=== PATIENT | female | born 1955 | race Caucasian/White ===

== ENCOUNTER 2024-10-01 19:58 | Inpatient (IN) | payer MEDICARE, OTHER, SELFPAY ==
[2024-10-01] VITALS (11 sets, daily range): BP systolic 94–191; BP diastolic 49–115; BMI 40.4; BMI 40.6
--- NOTE | 2024-10-01 14:14 | ED.GENMED ---
History of Present Illness
General
Chief Complaint: Chest Pain
Time Seen by Provider: 10/01/24 13:59
History of Present Illness
History of Present Illness:
69 yo female with history of diet-controlled diabetes and hypertension presents to the emergency department for evaluation of generalized upper abdominal pain ongoing for the past 3-4 days. She states symptoms began with intractable nausea and
vomiting however that is since improved. Pain was initially right upper quadrant predominantly left upper quadrant radiating to the left flank. No pelvic pain or lower abdominal discomfort. No fevers but does have night sweats. Prior abdominal
surgery includes subtotal hysterectomy. She reports pleuritic left upper quadrant pain some mild left-sided chest tightness as well
Review of Systems
Review of Systems
Allergies reviewed?: Yes
All Other Systems: ROS reviewed and negative except as documented in HPI and ROS
Phy Exam
Physical Exam
Physical Exam:
GEN: Well appearing, NAD, WDWN
HEENT: Oral mucosa moist, no scleral icterus
Cardiac: Regular rate and rhythm, no murmurs
Lung: No respiratory distress, no tachypnea, lungs clear to auscultation bilaterally
Abdomen: Soft, diffusely tender in the upper abdomen, negative Bland sign, no rigidity
MSK: No gross deformity or injuries
Skin: Good color, no pallor or jaundice, no rashes
Neuro: AO x3, moves all extremities freely
Psych: Calm, cooperative
Scores
Heart Score for Chest Pain Patients
STEMI patient?: Not applicable
Course
Orders/Labs/Results
Orders:
Orders
10/01/24 13:12
EKG [Electrocardiogram (*1)] Urgent
Reason for Study: Chest Pain
EKG- Treatment ONCE
10/01/24 13:27
EKG [Electrocardiogram (*1)] Urgent
Reason for Study: Other
Other Reason for Exam: repeat
EKG- Treatment ONCE
10/01/24 14:13
Ondansetron Injectable [Zofran] 4 mg IV NOW STA
10/01/24 14:49
Complete Blood Count/With Diff Urgent
Comprehensive Metabolic Panel Urgent
LDH Urgent
Comment: ADD ON
Lipase Urgent
Manual Differential Urgent
10/01/24 Dinner
2000 calorie (17 carb) Diabetic
10/01/24 15:38
CT Pe/abd/pel W Urgent
Comment:
Reason For Exam: chest pain, leukocytosis, abd pain
0.9% Sodium Chloride 1000 ml [Nss] 1,000 ml IV BOLUS
10/01/24 15:49
Blood Culture Q30M
KIEL Source: Blood/Venous
Specimen Description:
10/01/24 16:18
Blood Culture Q30M
KIEL Source: Blood/Venous
Specimen Description:
10/01/24 18:21
Heparin 9,400 units IV NOW STA
Nursing to Place Non Medication Order As Directed
Physician Order: PTT 6 hours after initial start of Heparin infusion
Above order entered?: Yes
10/01/24 18:30
Heparin 54115 Units/250 ml 25,000 units in 250 ml IV PER PROTOCOL
Weight to be used for heparin protocol in kilograms (kg):: 117
Protocol:: DVT/PE
PTT Goal Range to be used:: PTT 73 to 111 seconds
Order type:: Initial
INITIAL Infusion Dose (UNITS/KG/hr) & then follow protocol:: 18 units/kg/hr
Infusion Dose in UNITS/hr & then follow protocol (UNITS/hr):: 2,000
INFUSION RATE in mL/hr & then follow protocol (mL/hr):: 20
For DVT/PE algorithm, re-bolus for low PTT?: Yes
PTT less than or equal to 64 seconds:: Re-bolus 80 units/kg (max 10,000units). Increase by 500 units/hr
(+ 5mL/hr)
PTT 64.1 to 72.9 seconds:: Re-bolus 40 units/kg (max 5,000 units). Increase by 200 units/hr
(+ 2mL/hr)
PTT 73 to 111 seconds:: Target Range. No change in rate.
PTT 111.1 to 130.9 seconds:: Decrease rate by 200 units/hr (- 2 mL/hr)
PTT 131 to 199.9 seconds:: HOLD for 1 hr. Then decrease by 400 units/hr (- 4mL/hr)
PTT greater than or equal to 200 seconds:: HOLD for 2 hrs & Notify Provider. Then decrease by 500 units/hr
(- 5mL/hr)
Lab follow-up:: Each change, PTT q6h until 2 consecutive are therapeutic. Then
PTT daily.
10/01/24 18:48
PTT Urgent
Comment: Obtain baseline before beginning heparin infusion if not already collected
10/01/24 19:40
Admit/Transfer Patient As Directed
Co-Sign Provider:
Level of Care: Inpatient admission
Assign to:: Telemetry
Physician / Group: Rudolph Hurt
Diagnosis: Leukocytosis, splenic infarct
Reason for Telemetry: Arrhythmia
Date to Stop Telemetry: 10/04/24
Time to Stop Telemetry: 11:00
Reason for Hospitalization: Leukocytosis, splenic infarct
Expected length of stay greater than two midnights?: Yes
ELOS- Estimated Length of Stay in days: 3
I certify the patient meets the requirements for IP care: Yes
PRN Pain Medication Management As Directed
May give lesser potent ordered pain med per pt: Yes
preference::
Protocol:: Medication orders for pain may be administered in a
manner that supports deferring to patient preference
when the pt is:
- Requesting an ordered lesser potent pain medication.
Least to most potent pain medications are defined
as: acetaminophen < NSAID < tramadol < opioids
(morphine, oxycodone, hydromorphone).
- Requesting a lesser dose of the same medication IF
ORDERED.
- Requesting a less intrusive route of administration
if both routes are prescribed by the provider (PO <
IV).
10/01/24 19:41
Code Status As Directed
Resuscitation Status: Full Code
10/01/24 21:07
0.9% Sodium Chloride 1000 ml [Nss] 1,000 ml IV 80 mls/hr
Acetaminophen [Tylenol] 650 mg PO Q4HPRN PRN
Lisinopril [Zestril] 10 mg PO BID
Ondansetron Injectable [Zofran] 4 mg IV Q6HPRN PRN
bisoprolol-hydrochlorothiazide See Dose Instructions PO BID
10/01/24 21:07
HEMATOLOGY CONSULT Routine
Consulting Provider: Ezra Choi
Was physician already notified: Yes
Activity As Directed
Activity Level: Ambulate
Vital Signs As Directed
Frequency: Per unit guidelines
Weight As Directed
Frequency: Once
Comment: on admission
10/02/24 06:00
BCR-ABL1 Qual Reflex to Quant [S] IN AM
Basic Metabolic Panel IN AM
Complete Blood Count/No Diff IN AM
Leukemia/Lymphoma Phenotyping [S] IN AM
10/02/24 18:00
Multivitamin [Theragran] 1 tablet PO QPM
10/04/24 11:00
DC Protocol for Telemetry ONCE
Abnormal Lab Results
10/01/24
14:49
WBC 97.8 H* 10^3/uL
(4.8-10.8)
MCHC 32.4 L g/dL
(33.0-37.0)
RDW 16.8 H %
(11.5-14.5)
Plt Count 451 H 10^3/uL
(130-400)
MPV 10.5 H fL
(7.4-10.4)
Abs Neuts (Manual) 62.5 H 10^3/uL
(1.4-6.5)
Lymphocytes (Manual) 4 L %
(20-51)
BUN 19 H mg/dl
(7-17)
Glucose 171 H mg/dl
(70-99)
Lactate Dehydrogenase 754 H U/L
(120-246)
10/01/24 14:49
10/01/24 14:49
Vital Signs
Initial and Last Documented VS:
Initial Vital Signs
Temp Pulse Resp BP Pulse Ox
98.4 F 91 20 174/96 95
10/01/24 13:16 10/01/24 13:16 10/01/24 13:16 10/01/24 13:16 10/01/24 13:16
Last Documented Vital Signs
Temp Pulse Resp BP Pulse Ox
99.7 F 103 18 151/79 96
10/01/24 21:46 10/01/24 21:48 10/01/24 20:40 10/01/24 21:48 10/01/24 20:40
MDM/Problems Addressed
MDM/Problems Addressed:
69-year-old female presents with upper abdominal pain and vomiting. She is found to have severe leukocytosis and imaging findings of splenic infarct and splenomegaly, clinical picture is most consistent with acute hematologic malignancy such as
leukemia. Patient was started on heparin and admitted to the hospitalist service for further workup
Comment
Comment:
EKG independently interpreted by me shows normal sinus rhythm at a rate of 87 with frequent PVCs, borderline ST depression in the far lateral leads, otherwise no ischemic change
*Pulse Oximetry
SaO2: 95
Oxygen Mode of Delivery: Room air
Patient hypoxic: no
*Critical Care Note
Total Time (30-74mins, 75-104mins- exclusive of procedures): Not Applicable
ED Attending Note
-
Portions of this chart may have been created with voice recognition software.� Occasional wrong word or��sound alike� substitutions may have occurred due to the inherent limitations of voice recognition software.
Discharge Plan
Departure
Patient Disposition: Admit
Date of Disposition: 10/01/24
Time of Disposition: 18:32
Admit to: Telemetry
Presentation/result/management discussed w/ accepting MD/DO: Hospitalist
Discharge Problem:
Leukocytosis, Splenic infarct
Interventions
Interventions:
*Risk Screen - Suicide Last Done: 10/01/24 13:16
*General Assessment Last Done: 10/01/24 15:01
*Neglect/Abuse Screening Last Done: 10/01/24 13:16
*ED- Fall Risk Assessment Last Done: 10/01/24 15:00
*ED COVID-19 Vaccine History Last Done: 10/01/24 15:00
*Nursing Disposition Last Done: 10/01/24 20:54
ED- Cardiac Assessment Last Done: 10/01/24 15:01
Discharge Date and Time
Discharge Date/Time: 10/01/24 20:54
[2024-10-01] MEDS: ZOFRAN 4 MG IV (14:55)
[2024-10-01 15:13] LABS: ALT (SGPT) 26 U/L (0-35); AST (SGOT) 29 U/L (14-36); Albumin 4.5 g/dl (3.5-5.0); Alkaline Phosphatase 65 U/L (38-126); Blood Urea Nitrogen 19 mg/dl (7-17); Calcium 9.9 mg/dl (8.4-10.2); Carbon Dioxide 26 mmol/L (22-30); Chloride 103 mmol/L (98-107); Estimated Creatinine Clearance 87 ml/min; Glucose 171 mg/dl (70-99); Lipase 71 U/L (23-300); Potassium 4.0 mmol/L (3.5-5.1); Sodium 137 mmol/L (135-145); Total Protein 7.9 g/dl (6.3-8.2); eGFR > 60.00
[2024-10-01 15:20] LABS: Hematocrit 42.3 % (37.0-47.0); Hemoglobin 13.7 g/dL (12.0-16.0); Mean Corp Hgb Conc. 32.4 g/dL (33.0-37.0); Mean Corpuscular Volume 88.1 fL (81.0-99.0); Platelet Count 451 10^3/uL (130-400); Red Cell Dist. Width 16.8 % (11.5-14.5)
[2024-10-01] MEDS: NSS 1000 IV ×2 (15:52→21:49)
[2024-10-01 16:08] LABS: LDH 754 U/L (120-246)
[2024-10-01 16:19] LABS: Absolute Neutrophils -Man Diff 62.5 10^3/uL (1.4-6.5)
[2024-10-01 16:21] LABS: Normal RBC Morphology Yes; Platelets Checked Yes; Total Cells Counted 100
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
[2024-10-01 19:32] LABS: APTT 31.6 Sec (23.4-35.0)
[2024-10-01] MEDS: HEPARIN 25000 UNITS/250 ML IV (20:14)
[2024-10-01] MEDS: HEPARIN 9400 UNITS IV (20:14)
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
[2024-10-01] MEDS: ZESTRIL 10 MG PO (21:48)
--- NOTE | 2024-10-01 22:00 | PTCARENOTE ---
Received patient from ED at approx 2100. Patient ambulated to from stretcher to bed. AAA x 3. Call alford in reach.
[2024-10-02 03:00] VITALS: BP 148/75
[2024-10-02] MEDS: TYLENOL 650 MG PO ×2 (03:00→20:47)
[2024-10-02 03:08] LABS: Glucose - Point of Care 169 mg/dl (70-99)
[2024-10-02 03:09] LABS: APTT 134.7 Sec (23.4-35.0)
[2024-10-02 07:18] LABS: Glucose - Point of Care 141 mg/dl (70-99)
[2024-10-02] MEDS: NOVOLOG FLEXPEN-LOW RESISTANCE SC ×2 (07:28→11:57)
[2024-10-02 07:30] VITALS: BP 175/94
[2024-10-02] MEDS: ZESTRIL 10 MG PO ×2 (07:51→20:48)
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
--- NOTE | 2024-10-02 09:37 | CM ---
Patient seen at bedside with & daughter
IA completed
Dx: leukocytosis, splenic infarct
PMH: hypertension and NIDDM
[place], lives in a 2nd floor apartment with flight of steps to enter, no elevator
PLOF: Independent, drives
Denies DME
Denies VN/Rehab
Denies insecurities
PCP: Has an appt on October 21 with new PCP in [facility] in [place]
Pharmacy: [facility]
PLAN: Home, no needs anticipated, CM to continue to follow
--- NOTE | 2024-10-02 10:00 | W.PN.HOSP.TC ---
Today's Communication/Plan
-
Patient's pain well-controlled
As needed senna, MiraLAX
Echo today for cardiomegaly
Assessment / Plan
Assessment / Plan
Ms Narvaez is a 69-year-old female with past medical history significant for ulcerative colitis, kidney stones, hypertension and NIDDM who presented with generalized upper abdominal pain ongoing for the past 3-4 days. Patient reports symptoms
began with intractable nausea and vomiting on Saturday morning and ended by the afternoon. She then began with abdominal pain that was initially right upper quadrant predominantly then shifting to left upper quadrant. Left upper quadrant significant
pain continues. No pelvic pain or lower abdominal discomfort reported. No fevers but does have episodes of diaphoresis that she compares to the sweats she would get when going through menopause. She reports pleuritic left upper quadrant pain some
mild left-sided chest tightness especially with deep breathing. In the ED EKG was sinus rhythm with PVCs and PACs, CTA showed moderate to severe cardiomegaly, with no PE, CT abdomen pelvis showed 6.5 cm splenic infarct. Blood work showed WBC 97
hemoglobin 13 platelets 451, Na 137 K4 chloride 103 HCO3 26 BUN 19 creatinine 0.8. Patient was started on heparin drip for the splenic infarct and hematology was consulted. Hematology sent out battery of tests including antiphospholipid syndrome
lupus panel BCR abl.
#Leukocytosis
#splenic infarct
Abd/Pel CT:
LARGE 6.5 cm ACUTE SPLENIC INFARCT.
MODERATE SPLENOMEGALY.
- Consult heme/onc
- heparin gtt
- Follow-up blood cultures
- leukemia/lymphoma flow cytometry and BCR-ABL per Heme/Onc recommendation
# Cardiomegaly
CTA with severe to moderate cardiomegaly
EKG nonspecific
Echo ordered
# Essential hypertension
- continue bisoprolol-hydrochlorothiazide
#NIDDM
patient reports diet controlled
- AccuCheck AC & HS
- SSI
- check A1c
DVT prophylaxis
heparin
Code status
full code
Anticipated Discharge: Within 24 hours
Subjective/Interval History
-
Patient was seen at bedside she reports she is doing well with improved abdominal pain. Reports that she has never had this kind of pain before but does report a family history of blood clots in her father. Has had no personal history of blood
clots herself. She is eager to talk with hematology but currently has no complaints. Date of Service: October 02, 2024
Objective Data
-
Labs:
Laboratory Results
10/02/24 10/02/24 10/02/24
02:46 06:00 10:30
WBC Pending
Hgb Pending
Hct Pending
Plt Count Pending
APTT 134.7 H Pending
Sodium Pending
Potassium Pending
Chloride Pending
Carbon Dioxide Pending
BUN Pending
Creatinine Pending
Glucose Pending
Calcium Pending
Vital Signs:
Vital Signs
Temp Pulse Resp BP Pulse Ox
98.5 F 85 18 148/75 94
10/02/24 03:00 10/02/24 03:00 10/02/24 03:00 10/02/24 03:00 10/02/24 03:00
I&O
10/01/24 10/02/24 10/03/24
06:59 06:59 06:59
Intake Total 480 / 480
Balance 480 / 480
Review of Systems
-
History Source: Patient
All other systems: Reviewed and negative
Constitutional: Reports No Symptoms; Denies Fever, Weight Loss or Fatigue
EENT: Reports No Symptoms Reported; Denies Sore Throat or Runny Nose
Respiratory: Reports No Symptoms; Denies Cough or Trouble Breathing
Cardiac: Reports No Symptoms; Denies Chest Pain or Palpitations
Abdomen/GI: Reports No Symptoms; Denies Abdominal Pain, Nausea or Vomiting
Genitourinary: Reports No Symptoms; Denies Dysuria
Musculoskeletal: Reports No Symptoms
Skin: Reports No Symptoms
Neuro: Reports No Symptoms; Denies Headache
Physical Exam
-
General: Well Developed, Well Nourished, No Apparent Distress and Obese
HEENT: Normocephalic and Atraumatic
Respiratory: Clear to Auscultation; Negative Wheezes or Crackles
Cardiac: Regular Rhythm and S1/S2; Negative Murmur or Rub
GI: Soft and Tender (Left upper quadrant tenderness right upper quadrant tenderness, )
Musculoskeletal: No Clubbing, No Cyanosis and No Edema
Skin: Warm and Dry
Neuro: Awake, Alert and Oriented
[2024-10-02] MEDS: NSS IV (10:24)
[2024-10-02] MEDS: HEPARIN 25000 UNITS/250 ML IV (10:45)
[2024-10-02 11:13] LABS: APTT 68.8 Sec (23.4-35.0)
[2024-10-02 11:22] LABS: Hematocrit 41.9 % (37.0-47.0); Hemoglobin 13.4 g/dL (12.0-16.0); Mean Corp Hgb Conc. 32.0 g/dL (33.0-37.0); Mean Corpuscular Volume 89.9 fL (81.0-99.0); Platelet Count 402 10^3/uL (130-400); Red Cell Dist. Width 17.2 % (11.5-14.5)
[2024-10-02 11:23] LABS: Blood Urea Nitrogen 18 mg/dl (7-17); Calcium 9.4 mg/dl (8.4-10.2); Carbon Dioxide 26 mmol/L (22-30); Chloride 105 mmol/L (98-107); Estimated Creatinine Clearance 84 ml/min; Glucose 136 mg/dl (70-99); Potassium 3.6 mmol/L (3.5-5.1); Sodium 140 mmol/L (135-145); Uric Acid 8.7 mg/dl (2.5-6.2); eGFR > 60.00
[2024-10-02] MEDS: HEPARIN 4700 UNITS IV (11:27)
[2024-10-02 11:42] VITALS: BP 146/88
[2024-10-02 11:54] LABS: Glucose - Point of Care 127 mg/dl (70-99)
[2024-10-02] MEDS: NON-FORMULARY ITEM 1 TABLET PO ×2 (11:57→20:48)
[2024-10-02] MEDS: ZYLOPRIM 300 MG PO (12:59)
[2024-10-02 15:09] VITALS: BP 166/83
[2024-10-02 16:57] LABS: Glucose - Point of Care 156 mg/dl (70-99)
[2024-10-02] MEDS: THERAGRAN 1 TABLET PO (17:11)
[2024-10-02] MEDS: NOVOLOG FLEXPEN-LOW RESISTANCE 1 UNITS SC (17:48)
[2024-10-02 18:04] LABS: APTT 89.3 Sec (23.4-35.0)
[2024-10-02 19:30] VITALS: BP 188/88
[2024-10-02 21:21] LABS: Glucose - Point of Care 148 mg/dl (70-99)
[2024-10-02 23:35] VITALS: BP 145/66
[2024-10-03] MEDS: SENOKOT-S 1 TABLET PO (00:24)
[2024-10-03 00:48] LABS: APTT 98.6 Sec (23.4-35.0)
[2024-10-03] MEDS: HEPARIN 25000 UNITS/250 ML IV ×2 (01:02→15:25)
[2024-10-03 03:40] VITALS: BP 155/64
--- NOTE | 2024-10-03 06:53 | W.PN.ONC2 ---
Today's Communication / Plan
-
.
Impression
Impression
leukocytosis w/ predominate myeloid lineage - neutrophils, metamyelocytes, myelocytes - w/ thrombocytosis - along w/ splenomegaly w/ splenic infarct on CT imaging-this constellation of CBC and imaging findings is concerning for possible
myeloproliferative process
-additional myeloproliferative laboratory studies will be ordered accordingly
-bone marrow would also be indicated - potentially as outpt
-heparin gtt for splenic infarct - pt notes improvement in abdominal pain
-cardioembolic w/u in progress - echo pending - along w/ APLS panel
-hyperurcemia/elevated LDH
Plan
Plan
cardioembolic work up underway -echo pending
infectious work up underway -follow cultures
f/u APLS results
follow up peripheral flow and BCR ABL
additional myeloproliferative laboratory studies will be ordered accordingly
bone marrow would also be indicated - potentially as outpt
on heparin gtt -recommend DOAC at discharge
pain management
continue allopurinol, trend urate, LDH, renal function, & electrolytes
Subjective/Objective
Subjective
no new complaints
feeling better
denies any respiratory or neurological symtoms
Vital Signs:
Vital Signs
Temp Pulse Resp BP Pulse Ox
98.5 F 77 20 155/64 94
10/03/24 03:40 10/03/24 03:40 10/03/24 03:40 10/03/24 03:40 10/03/24 03:40
Lab Results:
Laboratory Data
WBC 98.1 10^3/uL (4.8-10.8) H* 10/02/24 10:45
Hgb 13.4 g/dL (12.0-16.0) 10/02/24 10:45
Plt Count 402 10^3/uL (130-400) H 10/02/24 10:45
APTT 98.6 Sec (23.4-35.0) H 10/03/24 00:24
eGFR > 60.00 10/02/24 10:44
Physical Exam
HEENT: Moist Mucous Membranes; No Jaundice
Cardiology: Normal Sinus Rhythm
Pulmonary: Clear
GI: Soft
Extremities: Pulses Present
Neuro: Non Focal
Orders
Orders
Orders From Last 24 Hours
10/02/24 09:12
Add On- LAB Routine
10/02/24 10:45
Bwee-1-Toktexdermcb Panel [S] Routine
Cardiolipin Ab Panel [S] Routine
Lupus Anticoagulant Panel Refl [S] Routine
10/02/24 13:00
Allopurinol [Zyloprim] 300 mg PO DAILY
10/03/24 06:00
LDH IN AM
Uric Acid IN AM
10/04/24 06:00
LDH IN AM
Uric Acid IN AM
10/05/24 06:00
LDH IN AM
Uric Acid IN AM
[2024-10-03 07:14] LABS: Glucose - Point of Care 145 mg/dl (70-99)
[2024-10-03] MEDS: NOVOLOG FLEXPEN-LOW RESISTANCE SC ×3 (07:22→16:32)
[2024-10-03 07:31] VITALS: BP 167/81
[2024-10-03 08:03] LABS: LDH 735 U/L (120-246); Uric Acid 8.0 mg/dl (2.5-6.2)
[2024-10-03 08:04] LABS: APTT 71.4 Sec (23.4-35.0)
[2024-10-03 08:21] LABS: Blood Urea Nitrogen 19 mg/dl (7-17); Calcium 9.5 mg/dl (8.4-10.2); Carbon Dioxide 22 mmol/L (22-30); Chloride 104 mmol/L (98-107); Estimated Creatinine Clearance 84 ml/min; Glucose 121 mg/dl (70-99); Potassium 3.7 mmol/L (3.5-5.1); Sodium 138 mmol/L (135-145); eGFR > 60.00
[2024-10-03] MEDS: HEPARIN 4700 UNITS IV (08:28)
[2024-10-03] MEDS: NON-FORMULARY ITEM 1 TABLET PO ×2 (08:34→20:00)
[2024-10-03] MEDS: ZYLOPRIM 300 MG PO (08:35)
[2024-10-03] MEDS: ZESTRIL 10 MG PO ×2 (08:35→20:01)
[2024-10-03] MEDS: MIRALAX 17 GRAMS PO (08:36)
[2024-10-03 09:15] LABS: Hematocrit 38.9 % (37.0-47.0); Hemoglobin 12.5 g/dL (12.0-16.0); Mean Corp Hgb Conc. 32.1 g/dL (33.0-37.0); Mean Corpuscular Volume 89.4 fL (81.0-99.0); Nucleated Red Blood Cells % 0.6 %; Platelet Count 455 10^3/uL (130-400); Red Cell Dist. Width 17.2 % (11.5-14.5)
--- NOTE | 2024-10-03 10:25 | W.PN.HOSP.TC ---
Today's Communication/Plan
-
Patient reports she is feeling much better than recent days.
Continue anticoagulation treatment for splenic infarct with heparin until this 6 PM this evening. Plan to transition to apixaban oral anticoagulation at 7 PM this evening.
Workup for etiology of splenic infarct underway, including hypercoagulable, cardioembolic, infectious. Continue to monitor clinical status.
Assessment / Plan
Assessment / Plan
#Leukocytosis
#Thrombocytosis
#Splenic infarct
- Hypercoagulable state vs cardioembolic
- CT abdomen/pelvis: LARGE 6.5 cm ACUTE SPLENIC INFARCT. MODERATE SPLENOMEGALY.
- Continue heparin gtt for now, stopping upon transition to OAC
- Plan to transition to apixaban 10 mg p.o. twice daily for 5 more days, followed by apixaban 5 mg p.o. twice daily for 90-day completion course, or until follow-up with heme-onc outpatient
- Blood cultures: NGTD
- Leukemia/lymphoma flow cytometry and BCR-ABL per heme-onc recommendation
- Trend CBC, LDH, uric acid
- WBCs, LDH, uric acid mildly decreased today from prior days
- Plan for outpatient follow-up with heme-onc for further evaluation and bone marrow biopsy
- Heme-onc following
# Cardiomegaly
- Chest CTA: Moderate to severe cardiomegaly
- EKG nonspecific (10/01)
- Echocardiogram ordered, not yet completed
- proBNP pending
# Essential hypertension
- continue bisoprolol-hydrochlorothiazide
#NIDDM
- Patient reports diet controlled
- AccuCheck AC & HS
- SSI
- A1c pending
DVT prophylaxis: Heparin
Code status: Full code
Anticipated Discharge: Within 24 hours
Subjective/Interval History
-
Date of Service: October 03, 2024
Patient seen at bedside on hospital day #3. Nursing reports NAEO. Patient states she currently feels 'best I have felt in a long time.' Patient suggests she would be amenable to discharge to home, with follow-up outpatient with
hematology�oncology and echocardiogram. No current complaints.
Objective Data
-
Labs:
Laboratory Results
10/03/24 10/03/24 10/03/24
00:24 06:31 07:42
WBC 88.2 H*
Hgb 12.5
Hct 38.9
Plt Count 455 H
APTT 98.6 H 71.4 H
Sodium 138 Cancelled
Potassium 3.7 Cancelled
Chloride 104 Cancelled
Carbon Dioxide 22 Cancelled
BUN 19 H Cancelled
Creatinine 0.8 Cancelled
Glucose 121 H Cancelled
Calcium 9.5 Cancelled
10/03/24
14:30
WBC
Hgb
Hct
Plt Count
APTT Pending
Sodium
Potassium
Chloride
Carbon Dioxide
BUN
Creatinine
Glucose
Calcium
Vital Signs:
Vital Signs
Temp Pulse Resp BP Pulse Ox
98.0 F 88 18 167/81 95
10/03/24 07:31 10/03/24 08:35 10/03/24 07:31 10/03/24 08:35 10/03/24 07:31
I&O
10/02/24 10/03/24 10/04/24
06:59 06:59 06:59
Intake Total 480 / 480 1080 / 1080 960 / 960
Balance 480 / 480 1080 / 1080 960 / 960
Review of Systems
-
History Source: Patient
Constitutional: Reports Night Sweats; Denies Fever, Fatigue or Chills
EENT: Reports No Symptoms Reported
Respiratory: Denies Cough, Trouble Breathing or Wheezing
Cardiac: Denies Chest Pain, Palpitations or Syncope
Abdomen/GI: Reports Other (Patient states she is having small bowel movements); Denies Abdominal Pain, Nausea, Vomiting or Diarrhea
Genitourinary: Denies Difficulty Voiding
Musculoskeletal: Denies Edema
Neuro: Denies Headache, Weakness or Numbness
Hematologic / Lymphatic: Denies Bleeding
Physical Exam
-
General: No Apparent Distress and Comfortable
HEENT: Normocephalic and Atraumatic
Respiratory: Clear to Auscultation and Non Labored Respirations; Negative Wheezes or Crackles
Cardiac: Regular Rhythm and S1/S2; Negative Murmur, Rub, Gallop, Tachycardic or Bradycardic
GI: Soft, Nontender (Patient states she was very TTP in recent days, particularly in LUQ and RUQ) and Normal Bowel Sounds
Musculoskeletal: Negative No Cyanosis or No Edema
Skin: Warm and Dry
Neuro: AO x 3, No Motor Deficits and No Sensory Deficits
Psych: Calm
[2024-10-03 11:09] VITALS: BP 168/76
[2024-10-03 11:40] LABS: Glucose - Point of Care 130 mg/dl (70-99)
[2024-10-03 11:48] LABS: Absolute Neutrophils -Man Diff 56.4 10^3/uL (1.4-6.5)
[2024-10-03 11:49] LABS: Anisocytosis 1+; Normal RBC Morphology No; Platelets Checked Yes
[2024-10-03 11:50] LABS: Hypochromasia Slight
[2024-10-03 11:51] LABS: Total Cells Counted 100
[2024-10-03 15:11] LABS: APTT 53.7 Sec (23.4-35.0)
[2024-10-03] MEDS: HEPARIN 9400 UNITS IV (15:26)
[2024-10-03 15:29] VITALS: BP 142/61
[2024-10-03 16:06] LABS: Glucose - Point of Care 141 mg/dl (70-99)
[2024-10-03] MEDS: THERAGRAN 1 TABLET PO (18:00)
[2024-10-03] MEDS: ELIQUIS 10 MG PO (18:52)
[2024-10-03 19:20] VITALS: BP 143/70
[2024-10-03] MEDS: TYLENOL 650 MG PO (20:03)
[2024-10-03 21:10] LABS: Glucose - Point of Care 122 mg/dl (70-99)
[2024-10-03 23:03] VITALS: BP 106/44
[2024-10-04 02:54] VITALS: BP 117/61
[2024-10-04 06:21] LABS: APTT 36.9 Sec (23.4-35.0)
[2024-10-04 06:26] LABS: Hematocrit 36.6 % (37.0-47.0); Hemoglobin 11.9 g/dL (12.0-16.0); Mean Corp Hgb Conc. 32.5 g/dL (33.0-37.0); Mean Corpuscular Volume 88.8 fL (81.0-99.0); Platelet Count 425 10^3/uL (130-400); Red Cell Dist. Width 17.0 % (11.5-14.5)
[2024-10-04 06:36] LABS: Blood Urea Nitrogen 19 mg/dl (7-17); Calcium 9.6 mg/dl (8.4-10.2); Carbon Dioxide 27 mmol/L (22-30); Chloride 107 mmol/L (98-107); Estimated Creatinine Clearance 96 ml/min; Glucose 144 mg/dl (70-99); LDH 594 U/L (120-246); Potassium 3.6 mmol/L (3.5-5.1); Sodium 139 mmol/L (135-145); Uric Acid 8.0 mg/dl (2.5-6.2); eGFR > 60.00
[2024-10-04 07:00] VITALS: BP 141/72
[2024-10-04 07:27] LABS: Glucose - Point of Care 139 mg/dl (70-99)
[2024-10-04] MEDS: NOVOLOG FLEXPEN-LOW RESISTANCE SC ×3 (07:35→17:36)
[2024-10-04] MEDS: NON-FORMULARY ITEM 1 TABLET PO ×2 (07:36→20:12)
[2024-10-04] MEDS: ELIQUIS 10 MG PO ×2 (07:37→20:13)
[2024-10-04] MEDS: ZYLOPRIM 300 MG PO (07:38)
[2024-10-04] MEDS: ZESTRIL 10 MG PO ×2 (07:38→20:13)
[2024-10-04 08:54] LABS: Nucleated Red Blood Cells % 0.6 %
[2024-10-04 08:55] LABS: Absolute Neutrophils -Man Diff 52.3 10^3/uL (1.4-6.5)
[2024-10-04 08:57] LABS: Normal RBC Morphology No; Platelets Checked Yes
[2024-10-04 08:58] LABS: Anisocytosis Slight; Hypochromasia Slight; Total Cells Counted 100
[2024-10-04 11:00] VITALS: BP 142/71
[2024-10-04 11:00] LABS: Glucose - Point of Care 124 mg/dl (70-99)
[2024-10-04 12:00] LABS: Glycohemoglobin (HgbA1c) 7.5 % (4.0-5.6)
--- NOTE | 2024-10-04 12:01 | W.PN.HOSP.TC ---
Today's Communication/Plan
-
Continue apixaban for anticoagulation treatment of splenic infarct.
Workup for etiology of splenic infarct underway, including hypercoagulable, cardioembolic (echo planned for 10/05), infectious.
Continue to monitor clinical status.
Assessment / Plan
Assessment / Plan
#Leukocytosis
#Thrombocytosis
#Splenic infarct
- Hypercoagulable state vs cardioembolic
- CT abdomen/pelvis: LARGE 6.5 cm ACUTE SPLENIC INFARCT. MODERATE SPLENOMEGALY.
- Anticoagulation transitioned from heparin gtt to apixaban yesterday evening, with new regimen as follows:
-Continue apixaban 10 mg p.o. twice daily for 4 more days, followed by apixaban 5 mg p.o. twice daily for 90-day completion course, or until follow-up with heme-onc outpatient
- Blood cultures: NGTD
- Leukemia/lymphoma flow cytometry and BCR-ABL per heme-onc recommendation
- Trend CBC, LDH, uric acid
- Plan for outpatient follow-up with heme-onc for further evaluation and bone marrow biopsy
- Heme-onc following
# Cardiomegaly
- Chest CTA: Moderate to severe cardiomegaly
- EKG nonspecific (10/01)
- Echocardiogram ordered, plan to complete Saturday
- proBNP: 698 (indeterminate)
# Essential hypertension
- continue bisoprolol-hydrochlorothiazide
#NIDDM
- Patient reports diet controlled
- AccuCheck AC & HS
- SSI
- A1c: 7.5 (10/03)
DVT prophylaxis: Apixaban
Code status: Full code
Anticipated Discharge: 24 - 48 hours
Subjective/Interval History
-
Date of Service: October 04, 2024
Patient seen at the bedside on hospital day #4. Nursing reports NAEO. Patient states she is feeling good. Patient says she does not have any upper abdominal pain, rather she is 'just aware of it.' No current complaints.
Objective Data
-
Labs:
Laboratory Results
10/04/24
05:57
WBC 73.8 H*
Hgb 11.9 L
Hct 36.6 L
Plt Count 425 H
APTT 36.9 H
Sodium 139
Potassium 3.6
Chloride 107
Carbon Dioxide 27
BUN 19 H
Creatinine 0.7
Glucose 144 H
Calcium 9.6
Vital Signs:
Vital Signs
Temp Pulse Resp BP Pulse Ox
98.2 F 71 18 142/71 96
10/04/24 11:00 10/04/24 11:00 10/04/24 11:00 10/04/24 11:00 10/04/24 11:00
I&O
10/03/24 10/04/24 10/05/24
06:59 06:59 06:59
Intake Total 1080 / 1080 1560 / 1560
Balance 1080 / 1080 1560 / 1560
Review of Systems
-
History Source: Patient
Constitutional: Reports Night Sweats (Present but improved from recent nights); Denies Fever, Fatigue or Chills
EENT: Reports No Symptoms Reported
Respiratory: Denies Trouble Breathing
Cardiac: Denies Chest Pain, Palpitations or Syncope
Abdomen/GI: Denies Abdominal Pain, Nausea, Vomiting or Diarrhea
Genitourinary: Denies Difficulty Voiding
Musculoskeletal: Reports No Symptoms
Neuro: Denies Headache, Weakness, Numbness or Lightheadedness
Physical Exam
-
General: No Apparent Distress and Comfortable
HEENT: Normocephalic and Atraumatic
Respiratory: Clear to Auscultation and Non Labored Respirations; Negative Wheezes or Crackles
Cardiac: Regular Rhythm and S1/S2; Negative Murmur, Rub, Gallop, Tachycardic or Bradycardic
GI: Soft, Nontender (RUQ and LUQ non-TTP) and Normal Bowel Sounds
Musculoskeletal: No Cyanosis and No Edema
Skin: Warm and Dry
Neuro: AO x 3
Psych: Calm
[2024-10-04 15:01] VITALS: BP 143/64
--- NOTE | 2024-10-04 16:12 | CM ---
CM reviewed chart, plan for Echocardiogram Thursday 10/05. Plan remains home with family. CM will continue to follow for all discharge planning needs.
Plan; home with family when stable
[2024-10-04 16:41] LABS: Glucose - Point of Care 109 mg/dl (70-99)
[2024-10-04] MEDS: THERAGRAN 1 TABLET PO (17:36)
[2024-10-04 19:55] VITALS: BP 152/69
[2024-10-04 21:12] LABS: Glucose - Point of Care 137 mg/dl (70-99)
--- NOTE | 2024-10-04 21:14 | W.PN.ONC2 ---
Today's Communication / Plan
-
Anticipate outpt bone marrow biopsy, although okay to wait for a couple weeks if WBC continues to improve and to await results from BCR/ABL PCR testing.
Would have pt undergo CBC c diff weekly until follow up visit.
We will arrange outpt follow up with me in about 3 weeks.
Impression
Impression
leukocytosis w/ predominate myeloid lineage - neutrophils, metamyelocytes, myelocytes - w/ thrombocytosis - along w/ splenomegaly w/ splenic infarct on CT imaging-this constellation of CBC and imaging findings is concerning for possible
myeloproliferative process
-additional myeloproliferative laboratory studies will be ordered accordingly
-bone marrow would also be indicated - potentially as outpt
-heparin gtt for splenic infarct - pt notes improvement in abdominal pain
-cardioembolic w/u in progress - echo pending - along w/ APLS panel
-hyperurcemia/elevated LDH
Plan
Plan
cardioembolic work up underway
infectious work up underway -follow cultures
f/u APLS results
follow up peripheral flow and BCR ABL
additional myeloproliferative laboratory studies will be ordered accordingly
bone marrow would also be indicated - potentially as outpt
on heparin gtt -recommend DOAC at discharge
pain management
continue allopurinol, trend urate, LDH, renal function, & electrolytes
Subjective/Objective
Chief Complaint
Heme/Onc follow up of leukocytosis
Subjective
Feels well, denies complaint.
Vital Signs:
Vital Signs
Temp Pulse Resp BP Pulse Ox
99.2 F 80 16 152/69 95
10/04/24 19:55 10/04/24 20:13 10/04/24 19:55 10/04/24 20:13 10/04/24 19:55
Lab Results:
Laboratory Data
WBC 73.8 10^3/uL (4.8-10.8) H* 10/04/24 05:57
Hgb 11.9 g/dL (12.0-16.0) L 10/04/24 05:57
Plt Count 425 10^3/uL (130-400) H 10/04/24 05:57
APTT 36.9 Sec (23.4-35.0) H 10/04/24 05:57
eGFR > 60.00 10/04/24 05:57
Physical Exam
Patient appears comfortable, in no acute distress. Appears stated age. Head atraumatic, normocephalic. Sclera anicteric, conjunctiva pink, oropharynx clear. No cervical, supraclavicular or axillary adenopathy. Heart rate and rhythm regular, no
murmurs, rubs or gallops. Lungs clear without rales or rhonchi. No kyphosis. Abdomen distended, firm, non-tender, no hepatosplenomegaly. No inguinal adenopathy. Extremities without clubbing, cyanosis or edema. Gait and stature normal. Neurologic
exam grossly non-focal, no hemiplegia.
Review of Systems
Review of Systems
A ten point interval review of systems was performed and is negative in detail except as per the HPI.
[2024-10-04 21:35] LABS: Source Blood
[2024-10-04 23:11] VITALS: BP 150/67
[2024-10-05] VITALS (7 sets, daily range): BP systolic 146–184; BP diastolic 65–90; BMI 40.7
[2024-10-05 06:48] LABS: APTT 40.2 Sec (23.4-35.0)
[2024-10-05 06:51] LABS: Hematocrit 36.5 % (37.0-47.0); Hemoglobin 11.7 g/dL (12.0-16.0); Mean Corp Hgb Conc. 32.1 g/dL (33.0-37.0); Mean Corpuscular Volume 88.0 fL (81.0-99.0); Platelet Count 447 10^3/uL (130-400); Red Cell Dist. Width 16.8 % (11.5-14.5)
[2024-10-05 06:59] LABS: Blood Urea Nitrogen 18 mg/dl (7-17); Calcium 9.6 mg/dl (8.4-10.2); Carbon Dioxide 25 mmol/L (22-30); Chloride 106 mmol/L (98-107); Estimated Creatinine Clearance 96 ml/min; Glucose 129 mg/dl (70-99); LDH 649 U/L (120-246); Potassium 3.6 mmol/L (3.5-5.1); Sodium 138 mmol/L (135-145); Uric Acid 7.6 mg/dl (2.5-6.2); eGFR > 60.00
[2024-10-05 07:33] LABS: Glucose - Point of Care 150 mg/dl (70-99)
[2024-10-05 07:43] LABS: Absolute Neutrophils -Man Diff 55.0 10^3/uL (1.4-6.5); Anisocytosis Slight; Normal RBC Morphology No; Platelets Checked Yes; Polychromasia Slight; Total Cells Counted 100
[2024-10-05] MEDS: NOVOLOG FLEXPEN-LOW RESISTANCE 1 UNITS SC (08:15)
[2024-10-05] MEDS: NON-FORMULARY ITEM 1 TABLET PO ×2 (08:17→20:57)
[2024-10-05] MEDS: ZYLOPRIM 300 MG PO (08:17)
[2024-10-05] MEDS: ZESTRIL 10 MG PO ×2 (08:17→20:58)
[2024-10-05] MEDS: ELIQUIS 10 MG PO ×2 (08:17→20:58)
--- NOTE | 2024-10-05 08:42 | W.PN.ONC2 ---
Today's Communication / Plan
-
weekly CBC, CMP, LDH, urate and outpatient bone marrow biopsy
Discharge planning
Pt at bedside provided updates and questions answered
Impression
Impression
leukocytosis w/ predominate myeloid lineage - neutrophils, metamyelocytes, myelocytes - w/ thrombocytosis - along w/ splenomegaly w/ splenic infarct on CT imaging-this constellation of CBC and imaging findings is concerning for possible
myeloproliferative process -peripheral flow with CD34+ blasts
-splenic infarct -heparin gtt transitioned to DOAC
-hyperuremia improved on allopurinol
Plan
Plan
f/u APLS results
bone marrow biopsy as outpt
on DOAC
pain management
continue allopurinol, trend urate, LDH, renal function, & electrolytes
Subjective/Objective
Subjective
no new complaints
Vital Signs:
Vital Signs
Temp Pulse Resp BP Pulse Ox
98.2 F 76 18 154/74 94
10/05/24 07:46 10/05/24 07:46 10/05/24 07:46 10/05/24 07:46 10/05/24 07:46
Lab Results:
Laboratory Data
WBC 73.4 10^3/uL (4.8-10.8) H* 10/05/24 06:16
Hgb 11.7 g/dL (12.0-16.0) L 10/05/24 06:16
Plt Count 447 10^3/uL (130-400) H 10/05/24 06:16
APTT 40.2 Sec (23.4-35.0) H 10/05/24 06:15
eGFR > 60.00 10/05/24 06:15
Physical Exam
HEENT: Moist Mucous Membranes; No Jaundice
Cardiology: Normal Sinus Rhythm
Pulmonary: Clear
GI: Soft
Extremities: Pulses Present
Neuro: Non Focal
Orders
Orders
Orders From Last 24 Hours
10/05/24 06:15
LDH IN AM
Uric Acid IN AM
[2024-10-05 11:27] LABS: Glucose - Point of Care 116 mg/dl (70-99)
[2024-10-05] MEDS: NOVOLOG FLEXPEN-LOW RESISTANCE SC ×2 (11:43→17:14)
--- NOTE | 2024-10-05 15:15 | W.PN.HOSP.TC ---
Addendum entered and electronically signed by Sonya Regalado MD 10/05/24 17:22:
I saw and evaluated the patient independently. I reviewed the resident�s note and agree with findings and plan as documented by Dr. Barlow.
GENERAL: well developed, well nourished, obese female in no apparent distress
HEENT: NC/AT
HEART: regular rate and rhythm, +S1, +S2, RITESH
LUNGS : clear to auscultation bilaterally
ABDOM: soft, nontender, nondistended, + bowel sounds
EXT: no cyanosis, clubbing, or edema
NEUROLOGIC: grossly intact
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
BCR/ABL gene pending- CT abdomen/pelvis: LARGE 6.5 cm ACUTE SPLENIC INFARCT. MODERATE SPLENOMEGALY--off heparin drip and now on Eliquis--will need follow up as outpt with heme and IR for bone marrow biopsy--cont allopurinol for tumor lysis
Cardiomegaly--found on CT scan--ECHO with mildly reduced EF--45-50% but with global hypokinesis--apprec cards--for treadmill nuclear stress test in AM--NPO post MN
Essential hypertension--continue bisoprolol-hydrochlorothiazide
NIDDM--diet controlled- AccuCheck AC & HS- SSI- A1c: 7.5 (10/03)
DVT proph- Apixaban
Code status-- Full code
Original Note:
Today's Communication/Plan
-
Patient had echo today
Cardiology consult
Doing well on apixaban
Assessment / Plan
Assessment / Plan
Ms Narvaez is a 69-year-old female with past medical history significant for ulcerative colitis, kidney stones, hypertension and NIDDM who presented with generalized upper abdominal pain ongoing for the past 3-4 days. Patient reports symptoms
began with intractable nausea and vomiting on Saturday morning and ended by the afternoon. She then began with abdominal pain that was initially right upper quadrant predominantly then shifting to left upper quadrant. Left upper quadrant significant
pain continues. No pelvic pain or lower abdominal discomfort reported. No fevers but does have episodes of diaphoresis that she compares to the sweats she would get when going through menopause. She reports pleuritic left upper quadrant pain some
mild left-sided chest tightness especially with deep breathing. In the ED EKG was sinus rhythm with PVCs and PACs, CTA showed moderate to severe cardiomegaly, with no PE, CT abdomen pelvis showed 6.5 cm splenic infarct. Blood work showed WBC 97
hemoglobin 13 platelets 451, Na 137 K4 chloride 103 HCO3 26 BUN 19 creatinine 0.8. Patient was started on heparin drip for the splenic infarct and hematology was consulted. Hematology sent out battery of tests including antiphospholipid syndrome
lupus panel BCR abl. Heme-onc thinks this could possibly be a myeloid disorder, requiring bone marrow biopsy outpatient. Patient was transition from heparin drip to Eliquis. Echo performed showed 45 to 50% ejection fraction, with global
hypokinesis. Cardiology consulted.
#Leukocytosis
#Thrombocytosis
#Splenic infarct
- Hypercoagulable state vs cardioembolic
- CT abdomen/pelvis: LARGE 6.5 cm ACUTE SPLENIC INFARCT. MODERATE SPLENOMEGALY.
- Anticoagulation transitioned from heparin gtt to apixaban
-Continue apixaban 10 mg p.o. twice daily for 4 more days, followed by apixaban 5 mg p.o. twice daily for 90-day completion course, or until follow-up with heme-onc outpatient
- Leukemia/lymphoma flow cytometry and BCR-ABL per heme-onc recommendation
- Trend CBC, LDH, uric acid
- Plan for outpatient follow-up with heme-onc for further evaluation and bone marrow biopsy
- Heme-onc following
# Cardiomegaly
- Chest CTA: Moderate to severe cardiomegaly
- EKG nonspecific (10/01)
- Echocardiogram EF 45 to 50%, global hypokinesis
- proBNP: 698 (indeterminate)
Cardiology consulted
# Essential hypertension
- continue bisoprolol-hydrochlorothiazide
#NIDDM
- Patient reports diet controlled
- AccuCheck AC & HS
- SSI
- A1c: 7.5 (10/03)
DVT prophylaxis: Apixaban
Code status: Full code
Anticipated Discharge: Within 24 hours
Subjective/Interval History
-
Patient was seen at bedside, she reports doing well without any abdominal pain. She has no other complaints. Date of Service: October 05, 2024
Objective Data
-
Labs:
Laboratory Results
10/05/24 10/05/24
06:15 06:16
WBC 73.4 H*
Hgb 11.7 L
Hct 36.5 L
Plt Count 447 H
APTT 40.2 H
Sodium 138
Potassium 3.6
Chloride 106
Carbon Dioxide 25
BUN 18 H
Creatinine 0.7
Glucose 129 H
Calcium 9.6
Vital Signs:
Vital Signs
Temp Pulse Resp BP Pulse Ox
98.2 F 90 18 184/90 98
10/05/24 14:58 10/05/24 14:58 10/05/24 14:58 10/05/24 14:58 10/05/24 14:58
I&O
10/04/24 10/05/24 10/06/24
06:59 06:59 06:59
Intake Total 1560 / 1560 1380 / 1380
Balance 1560 / 1560 1380 / 1380
Review of Systems
-
History Source: Patient
All other systems: Reviewed and negative
Constitutional: Reports No Symptoms; Denies Fever or Fatigue
EENT: Reports No Symptoms Reported; Denies Sore Throat or Runny Nose
Respiratory: Reports No Symptoms; Denies Cough or Trouble Breathing
Cardiac: Reports No Symptoms; Denies Chest Pain or Palpitations
Abdomen/GI: Reports No Symptoms; Denies Abdominal Pain, Nausea or Vomiting
Musculoskeletal: Reports No Symptoms
Skin: Reports No Symptoms; Denies Itching or Rash
Neuro: Reports No Symptoms; Denies Dizzy or Headache
Physical Exam
-
General: Well Developed, Well Nourished, No Apparent Distress and Obese
HEENT: Negative Normocephalic or Atraumatic
Respiratory: Clear to Auscultation; Negative Wheezes or Crackles
Cardiac: Regular Rhythm and S1/S2; Negative Murmur or Rub
GI: Soft, Nontender, Nondistended and Normal Bowel Sounds
Musculoskeletal: No Clubbing, No Cyanosis and No Edema
Skin: Warm and Dry
Neuro: Awake, Alert and Oriented
[2024-10-05 15:44] LABS: Glucose - Point of Care 131 mg/dl (70-99)
--- NOTE | 2024-10-05 16:20 | CON.CAR ---
Addendum entered and electronically signed by Long Sullivan MD 10/05/24 17:58:
I saw and examined the patient.
The EBAY RESELLER's note was reviewed and I agree with the note.
Consult requested by Dr. Regalado for EF 45 to 50% on echocardiogram
69-year-old woman with a history of hypertension, diabetes, obesity, and ulcerative colitis who presented with abdominal pain and was noted to have a splenic infarct. Patient also noted to have leukocytosis with WBC 97 on admission. Patient seen
by hematology. There is concern for myeloproliferative process. Eventual plans for bone marrow biopsy. Timing being directed by hematology. Patient currently on Eliquis.
CT is great and raise question for cardiomegaly so echocardiogram was ordered. Borderline dilated left ventricle with estimated ejection fraction 45 to 50%. Patient with no complaints of shortness of breath or chest pain no orthopnea lower
extremity edema no history of cardiac disease. Patient does have a history of hypertension and is currently on medical therapy. No history of 'coronary artery disease. Rare alcohol use. No recent viral illness.
.
Cardiomyopathy
- Mild cardiomyopathy with estimated ejection fraction 45 to 50%
- Asymptomatic
- Euvolemic
- Etiology unclear.
- Check TSH
- Would recommend noninvasive evaluation for coronary artery disease. Plan for ETT MIBI. Will start with modified protocol. If unable to adequately walk on the treadmill we will transition to Lexiscan.
- Consider addition of SGLT2 inhibitor if okay with primary team
- Continue lisinopril
- Would consider transition Bystolic to metoprolol succinate
- Continue treatment of hypertension
.
Leukocytosis with concern for myeloproliferative process
- Evaluation as directed by hematology
.
Splenic infarct.
-Pain improved. No longer with complaints of abdominal pain
- Hematology evaluation in progress
- Patient currently maintained on anticoagulation
Original Note:
Consultation
Consultation Request
Date/Time Consultation Requested: 10/05/2024 13:00
Date/Time Consultation Performed: 10/05/2024 16:20
Requesting Provider: Dr. Barlow [MD resident]
Performing Provider: GRANT Carpenter for Dr. Sullivan
Reason for Consultation: Abnormal Echocardiogram
Medical History
-
Chief Complaint: Abdominal pain
History of Present Illness:
Isabelle Narvaez is a 69 year old female with hypertension, type 2 diabetes mellitus, ulcerative colitis, and former smoker who presented to the emergency department with a chief complaint of abdominal pain. This was ongoing for 3 to 4 days prior to
arrival. She had associated vomiting. She endorsed episodes of diaphoresis similar to hot flashes during menopause. CT showed splenic infarct. An echocardiogram was ordered for significant cardiomegaly. Cardiology was consulted for abnormal
echocardiogram. She has global hypokinesis with an LVEF of 45 to 50%. She was evaluated by hematology/oncology for her leukocytosis. The plan is for outpatient bone marrow biopsy. She denies chest pain, shortness of breath, and dizziness.
Past Medical History
Past Medical History: HTN, NIDDM and Other (Ulcerative colitis)
Past Surgical History: Gynecological, Orthopedic and Tonsilectomy
Social History
Tobacco: Former Smoker
Personal:
Living: With Family
Family History
Family History: Reviewed & Not Pertinent
Allergies / Home Medications
Allergy/AdvReac Type Severity Reaction Status Date / Time
No Known Allergies Allergy Unverified 10/01/24 13:16
�Medication �Instructions �Recorded �Confirmed �Type
acetaminophen 500 mg tablet 1,000 mg PO Q6HPRN PRN mild pain 10/01/24 10/01/24 History
(Tylenol Extra Strength)
bisoprolol 10 1 tab PO BID 10/01/24 10/01/24 History
mg-hydrochlorothiazide 6.25 mg
tablet
lisinopril 10 mg tablet 10 mg PO BID 10/01/24 10/01/24 History
therapeutic multivitamin 1 tab PO QPM 10/01/24 10/01/24 History
Review of Systems
-
History Source: Patient
All other systems: Negative unless noted
Constitutional: Fatigue and Night Sweats
EENT: No Symptoms
Respiratory: No Symptoms
Cardiac: No Symptoms
Abdomen/GI: No Symptoms
: No Symptoms
Musculoskeletal: No Symptoms
Skin: No Symptoms
Neurological: No Symptoms
Endocrine: No Symptoms
Hematologic/Lymphatic: No Symptoms
Physical Exam
Vital Signs
Temp Pulse Resp BP Pulse Ox
98.2 F 90 18 184/90 98
10/05/24 14:58 10/05/24 14:58 10/05/24 14:58 10/05/24 14:58 10/05/24 14:58
Lab Results
10/05/24 06:16
10/05/24 06:15
Wpo-X-Qfrlwjsqcog Pept 698 pg/ml 10/03/24 06:31
Physical Exam
General: Well Developed, Well Nourished, No Apparent Distress and Comfortable
HEENT: Normocephalic, Anicteric and Moist Mucous Membranes
Respiratory: Clear and Non Labored Respirations
Cardiac: S1/S2, Regular Rhythm and Murmur
Breast: Deferred by me
GI: Soft, Non Tender, Non Distended and Normal Bowel Sounds
Rectal: Deferred by Provider
Genito-urinary: No Costovertebral Tender
Musculoskeletal: No Clubbing, No Cyanosis and No Edema
Skin: Warm and Dry
Neuro: AO x 3
Hematologic/Lymphatic: No Lymphadenopathy
Psych: Calm
Impression / Plan
-
I/P: 69F with with hypertension, type 2 diabetes mellitus, ulcerative colitis, and former smoker who presented to the emergency department with a chief complaint of abdominal pain.
Outpatient jar capper: will be Dr. Sullivan
Cardiomyopathy (EF 40-45%), type unknown
- She does not appear to be in acute/decompensated heart failure
- GDMT as tolerated:
-NADIRA/ARB/ARNI: Lisinopril 10 mg twice daily
-SGLT2 inhibitor: Case management to simmons
-Aldosterone agonist: Can consider, no documented hyperkalemia
-Beta rachid: Bisoprolol 10 mg twice daily
-Isosorbide/Hydralazine:�Not indicated
-ICD: Not indicated
- Trend daily weight, I/O
- Consider outpatient cardio oncology consultation
- Nuclear stress test in a.m., no caffeine (she may need Lexiscan), n.p.o. after midnight, hold beta rachid
Leukocytosis with thrombocytosis and splenic infarct
- Plan is for outpatient bone marrow biopsy per Heme-Onc
Splenic infarct
- Large 6.5 cm acute splenic infarct on CT
- Now on apixaban, 10 mg twice daily for 4 more days then will transition to 5 mg twice daily for total of 90 days or until stopped by Heme-Onc
Mitral regurgitation, moderate
PVC, continue beta rachid
Atherosclerosis in thoracic aorta, statin recommended
NIDDM, with hyperglycemia, HbA1c 7.5%, per primary
Obesity, BMI 40, she would benefit from weight loss
Data Reviewed
-
EKG: Report Reviewed by me
CT Scan: Report Reviewed by me
Medical Tests (Nuc Med, Echo etc): Report Reviewed by me
[2024-10-05] MEDS: THERAGRAN 1 TABLET PO (17:14)
[2024-10-05 19:57] LABS: Beta-2-Glycoprotein I Ab. IgG <10 SGU (<=20); Beta-2-Glycoprotein I Ab. IgM <10 SMU (<=20)
[2024-10-05 21:28] LABS: Glucose - Point of Care 127 mg/dl (70-99)
[2024-10-06 03:00] VITALS: BP 151/77
[2024-10-06 05:52] LABS: Glucose - Point of Care 130 mg/dl (70-99)
[2024-10-06 07:13] VITALS: BP 187/92
[2024-10-06 08:01] LABS: Hematocrit 37.8 % (37.0-47.0); Hemoglobin 12.3 g/dL (12.0-16.0); Mean Corp Hgb Conc. 32.5 g/dL (33.0-37.0); Mean Corpuscular Volume 89.2 fL (81.0-99.0); Platelet Count 520 10^3/uL (130-400); Red Cell Dist. Width 17.2 % (11.5-14.5)
[2024-10-06 08:08] LABS: Glucose - Point of Care 145 mg/dl (70-99)
[2024-10-06 08:35] LABS: Blood Urea Nitrogen 17 mg/dl (7-17); Calcium 9.4 mg/dl (8.4-10.2); Carbon Dioxide 24 mmol/L (22-30); Chloride 105 mmol/L (98-107); Estimated Creatinine Clearance 112 ml/min; Glucose 118 mg/dl (70-99); HDL Cholesterol 31 mg/dl; LDL Cholesterol, Calculated 82 mg/dl; Potassium 3.9 mmol/L (3.5-5.1); Sodium 140 mmol/L (135-145); Very Low Density Lipoprotein 26 mg/dl (0-30); eGFR > 60.00
--- NOTE | 2024-10-06 08:47 | W.PN.CD ---
Addendum entered and electronically signed by Long Sullivan MD 10/06/24 11:19:
I saw and examined the patient.
The WATER HAULER's note was reviewed and I agree with the note.
No new symptoms. Patient comfortable. No complaints of abdominal pain, chest pain or shortness of breath. Plan for nuclear stress as recommended. Will then try to optimize GDMT which would initially include transition of lisinopril to Entresto,
addition of SGLT2 and transition of bisoprolol to Toprol-XL
Original Note:
Today's Communication / Plan
-
Nuclear stress this morning
TSH pending
Impression / Plan
-
I/P: 69F with with hypertension, type 2 diabetes mellitus, ulcerative colitis, and former smoker who presented to the emergency department with a chief complaint of abdominal pain.
Outpatient casting room helper: will be Dr. Sullivan
Cardiomyopathy (EF 40-45%), type unknown
- She does not appear to be in acute/decompensated heart failure
- GDMT as tolerated:
-NADIRA/ARB/ARNI: Lisinopril 10 mg twice daily
-SGLT2 inhibitor: Case management to simmons
-Aldosterone agonist: Can consider, no documented hyperkalemia
-Beta rachid: Bisoprolol 10 mg twice daily
-Isosorbide/Hydralazine:�Not indicated
-ICD: Not indicated
- Trend daily weight, I/O
- Consider outpatient cardio oncology consultation
- Stress test this morning
- TSH pending
Leukocytosis with thrombocytosis and splenic infarct
- Plan is for outpatient bone marrow biopsy per Heme-Onc
Splenic infarct
- Large 6.5 cm acute splenic infarct on CT
- Now on apixaban, 10 mg twice daily for 4 more days then will transition to 5 mg twice daily for total of 90 days or until stopped by Heme-Onc
Mitral regurgitation, moderate
PVC, continue beta rachid
Atherosclerosis in thoracic aorta, statin recommended
NIDDM, with hyperglycemia, HgbA1c 7.5%, per primary
Obesity, BMI 40, she would benefit from weight loss
SUBJECTIVE:
Denies CP, SOB, and dizziness
Physical Exam
Vital Signs/Labs
Vital Signs
Temp Pulse Resp BP Pulse Ox
98.2 F 83 20 187/92 95
10/06/24 07:13 10/06/24 07:13 10/06/24 07:13 10/06/24 07:13 10/06/24 07:13
10/05/24 10/06/24 10/07/24
06:59 06:59 06:59
Actual Weight 114.334 kg
10/06/24 06:42
10/06/24 06:42
APTT 40.2 Sec (23.4-35.0) H 10/05/24 06:15
Triglycerides 132 mg/dl (10-149) 10/06/24 06:42
LDL Cholesterol, Calc 82 mg/dl 10/06/24 06:42
VLDL Cholesterol, Calc 26 mg/dl (0-30) 10/06/24 06:42
HDL Cholesterol 31 mg/dl 10/06/24 06:42
10/03/24
06:31
Rlk-Y-Lagtrnifrrw Pept 698
Physical Exam
Constitutional: No acute distress and Comfortable
EENT: Anicteric and Moist mucous membranes
Cardiovascular: Rhythm & rate is regular and S1S2 is normal
Respiratory: Respiratory effort normal and Lungs clear to auscul.
GI: Soft, Distention absent, Flat, Non tender and Normal bowel sounds
Neuro/Psych: AO x 3
Other: Skin (warm and dry)
Data Reviewed
-
Date of Service: October 06, 2024
Labs: Labs Reviewed by me
Old Records: Reviewed
--- NOTE | 2024-10-06 08:51 | W.PN.ONC2 ---
Today's Communication / Plan
-
discharge planning
Impression
Impression
leukocytosis w/ predominate myeloid lineage - neutrophils, metamyelocytes, myelocytes - w/ thrombocytosis - along w/ splenomegaly w/ splenic infarct on CT imaging-2% blasts noted on flow, not specific but suggestive of primary bone marrow dyscrasia.
-splenic infarct -cardiolipin and beta2 glycoprotein negative -heparin gtt transitioned to DOAC
-hyperuremia improved on allopurinol
-cardiomyopathy LVEF 45-50%
Plan
Plan
f/u lupus anticoagulant
bone marrow biopsy as outpt 10/09
on DOAC
pain management
continue allopurinol, trend urate, LDH, renal function, & electrolytes
Cardiology evaluation underway
Subjective/Objective
Subjective
no new complaints
Vital Signs:
Vital Signs
Temp Pulse Resp BP Pulse Ox
98.2 F 83 20 187/92 95
10/06/24 07:13 10/06/24 07:13 10/06/24 07:13 10/06/24 07:13 10/06/24 07:13
Lab Results:
Laboratory Data
WBC 81.6 10^3/uL (4.8-10.8) H* 10/06/24 06:42
Hgb 12.3 g/dL (12.0-16.0) 10/06/24 06:42
Plt Count 520 10^3/uL (130-400) H 10/06/24 06:42
APTT 40.2 Sec (23.4-35.0) H 10/05/24 06:15
eGFR > 60.00 10/06/24 06:42
Physical Exam
HEENT: Moist Mucous Membranes; No Jaundice
Cardiology: Normal Sinus Rhythm
Pulmonary: Clear
GI: Soft
Extremities: Pulses Present
Neuro: Non Focal
[2024-10-06] MEDS: NOVOLOG FLEXPEN-LOW RESISTANCE SC ×3 (09:04→16:43)
[2024-10-06] MEDS: ZYLOPRIM 300 MG PO (09:05)
[2024-10-06] MEDS: ELIQUIS 10 MG PO ×2 (09:05→19:49)
[2024-10-06] MEDS: ZESTRIL 10 MG PO (09:05)
[2024-10-06 09:49] LABS: LDH 631 U/L (120-246); Uric Acid 6.9 mg/dl (2.5-6.2)
--- NOTE | 2024-10-06 11:45 | CM ---
Addendum entered by Tri Swann 10/06/24 14:02:
30 day free coupon provided to patient.
Original Note:
Chart reviewed and patient is for possible discharge to home today with family. Cost of medications are as follows, Jardiance 10mg $119.29 per month, Farxiga 10mg $119, and Entresto 24/26 $133.66 per month.
Plan; Home at discharge.
[2024-10-06 13:43] LABS: Ferritin 605.0 ng/ml (11.1-264.0)
--- NOTE | 2024-10-06 13:51 | W.PN.HOSP.TC ---
Addendum entered and electronically signed by Sonya Regalado MD 10/06/24 14:13:
I saw and evaluated the patient independently. I reviewed the resident�s note and agree with findings and plan as documented by Dr. Barlow.
GENERAL: well developed, well nourished, obese female in no apparent distress
HEENT: NC/AT
HEART: regular rate and rhythm, +S1, +S2, RITESH
LUNGS : clear to auscultation bilaterally
ABDOM: soft, nontender, nondistended, + bowel sounds
EXT: no cyanosis, clubbing, or edema
NEUROLOGIC: grossly intact
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
line, BCR/ABL gene pending- CT abdomen/pelvis: LARGE 6.5 cm ACUTE SPLENIC INFARCT. MODERATE SPLENOMEGALY--off heparin drip and now on Eliquis--will need follow up as outpt with heme and IR for bone marrow biopsy--cont allopurinol for tumor lysis
Cardiomegaly--found on CT scan--ECHO with mildly reduced EF--45-50% but with global hypokinesis--apprec cards--for treadmill nuclear stress test today--further treatment decisions based on stress test result
Essential hypertension-- bisoprolol-hydrochlorothiazide to change to GDMT per cards
NIDDM--diet controlled- AccuCheck AC & HS- SSI- A1c: 7.5 (10/03)
DVT proph- Apixaban
Code status-- Full code
Original Note:
Today's Communication/Plan
-
Nuclear stress test
Appreciate cards with GDMT optimization
Outpatient bone marrow biopsy 10/09
Assessment / Plan
Assessment / Plan
Ms Narvaez is a 69-year-old female with past medical history significant for ulcerative colitis, kidney stones, hypertension and NIDDM who presented with generalized upper abdominal pain ongoing for the past 3-4 days. Patient reports symptoms
began with intractable nausea and vomiting on Saturday morning and ended by the afternoon. She then began with abdominal pain that was initially right upper quadrant predominantly then shifting to left upper quadrant. Left upper quadrant significant
pain continues. No pelvic pain or lower abdominal discomfort reported. No fevers but does have episodes of diaphoresis that she compares to the sweats she would get when going through menopause. She reports pleuritic left upper quadrant pain some
mild left-sided chest tightness especially with deep breathing. In the ED EKG was sinus rhythm with PVCs and PACs, CTA showed moderate to severe cardiomegaly, with no PE, CT abdomen pelvis showed 6.5 cm splenic infarct. Blood work showed WBC 97
hemoglobin 13 platelets 451, Na 137 K4 chloride 103 HCO3 26 BUN 19 creatinine 0.8. Patient was started on heparin drip for the splenic infarct and hematology was consulted. Hematology sent out battery of tests including antiphospholipid syndrome
lupus panel BCR abl. Heme-onc thinks this could possibly be a myeloid disorder, requiring bone marrow biopsy outpatient. Outpatient biopsy scheduled with IR for Monday 10/09. patient was transition from heparin drip to Eliquis. Echo performed
showed 45 to 50% ejection fraction, with global hypokinesis. Cardiology consulted, who ordered a nuclear stress test.
#Leukocytosis
#Thrombocytosis
#Splenic infarct
- Hypercoagulable state vs cardioembolic
- CT abdomen/pelvis: LARGE 6.5 cm ACUTE SPLENIC INFARCT. MODERATE SPLENOMEGALY.
- Anticoagulation transitioned from heparin gtt to apixaban
-Continue apixaban 10 mg p.o. twice daily for 4 more days, followed by apixaban 5 mg p.o. twice daily for 90-day completion course, or until
- Trend CBC, LDH, uric acid
- Plan for outpatient follow-up with heme-onc for further evaluation and bone marrow biopsy
Biopsy 10/09, stop apixaban 10/07, resume on 10/09 evening
- Heme-onc following
Negative cardiolipin, negative beta-2 glycoprotein
Continue allopurinol
# Cardiomegaly
- Chest CTA: Moderate to severe cardiomegaly
- Echocardiogram EF 45 to 50%, global hypokinesis
Cardiology consulted
Nuclear stress test ordered
Optimizing GDMT for patient
transition of lisinopril to Entresto, addition of SGLT2 and transition of bisoprolol to Toprol-XL
# Essential hypertension
Appreciate cards recs
transition of lisinopril to Entresto, addition of SGLT2 and transition of bisoprolol to Toprol-XL
#NIDDM
- Patient reports diet controlled
- AccuCheck AC & HS
- SSI
- A1c: 7.5 (10/03)
DVT prophylaxis: Apixaban
Code status: Full code
Anticipated Discharge: Within 24 hours
Subjective/Interval History
-
Patient is doing well. She reports no complaints and is doing a lot better. She is ready for her stress test today. Answered her questions and informed her of changes to hypertension medications. Date of Service: October 06, 2024
Objective Data
-
Labs:
Laboratory Results
10/06/24
06:42
WBC 81.6 H*
Hgb 12.3
Hct 37.8
Plt Count 520 H
Sodium 140
Potassium 3.9
Chloride 105
Carbon Dioxide 24
BUN 17
Creatinine 0.6
Glucose 118 H
Calcium 9.4
Vital Signs:
Vital Signs
Temp Pulse Resp BP Pulse Ox
97.8 F 83 20 187/92 95
10/06/24 11:28 10/06/24 07:13 10/06/24 11:28 10/06/24 09:05 10/06/24 08:00
I&O
10/05/24 10/06/24 10/07/24
06:59 06:59 06:59
Intake Total 1380 / 1380
Balance 1380 / 1380
Review of Systems
-
History Source: Patient
All other systems: Reviewed and negative
Constitutional: Reports No Symptoms; Denies Fever or Fatigue
EENT: Reports No Symptoms Reported; Denies Sore Throat or Runny Nose
Respiratory: Reports No Symptoms; Denies Cough or Trouble Breathing
Cardiac: Reports No Symptoms; Denies Chest Pain or Palpitations
Abdomen/GI: Reports No Symptoms; Denies Abdominal Pain, Nausea, Vomiting or Diarrhea
Genitourinary: Reports No Symptoms
Musculoskeletal: Reports No Symptoms; Denies Joint Pain
Skin: Reports No Symptoms; Denies Itching
Neuro: Reports No Symptoms; Denies Dizzy or Headache
Physical Exam
-
General: Well Developed, Well Nourished, No Apparent Distress, Comfortable and Obese
HEENT: Normocephalic and Atraumatic
Respiratory: Clear to Auscultation; Negative Wheezes or Crackles
Cardiac: Regular Rhythm and S1/S2; Negative Murmur or Rub
GI: Soft, Nontender, Nondistended and Normal Bowel Sounds
Musculoskeletal: No Clubbing, No Cyanosis and No Edema
Skin: Warm and Dry
Neuro: Awake, Alert and Oriented
[2024-10-06 15:20] VITALS: BP 169/89
[2024-10-06] MEDS: COREG 6.25 MG PO ×2 (15:57→19:49)
[2024-10-06 16:32] LABS: Glucose - Point of Care 138 mg/dl (70-99)
[2024-10-06] MEDS: THERAGRAN 1 TABLET PO (17:26)
[2024-10-06] MEDS: ZESTRIL 20 MG PO (19:48)
[2024-10-06 19:49] VITALS: BP 151/72
[2024-10-06] MEDS: SENOKOT-S 1 TABLET PO (19:49)
[2024-10-06 21:06] LABS: Glucose - Point of Care 104 mg/dl (70-99)
[2024-10-06 23:00] VITALS: BP 123/60
[2024-10-06 23:30] LABS: Anticoagulant Med Neutralizati Hepzyme (Not Performed); Neutralized dRVTT Screen Ratio Not Performed (<=1.20); Prothrombin Time 15.1 s (12.0-15.5); dRVTT 1.1 Mix Ratio Not Performed (<=1.20); dRVTT Confirmation Ratio Not Performed (<=1.20); dRVTT Screen Ratio 1.19 (<=1.20)
[2024-10-07 03:00] VITALS: BP 153/76
[2024-10-07 06:49] LABS: Hematocrit 35.9 % (37.0-47.0); Hemoglobin 11.6 g/dL (12.0-16.0); Mean Corp Hgb Conc. 32.3 g/dL (33.0-37.0); Mean Corpuscular Volume 89.5 fL (81.0-99.0); Platelet Count 509 10^3/uL (130-400); Red Cell Dist. Width 17.1 % (11.5-14.5)
[2024-10-07 07:13] LABS: Blood Urea Nitrogen 17 mg/dl (7-17); Calcium 9.3 mg/dl (8.4-10.2); Carbon Dioxide 23 mmol/L (22-30); Chloride 104 mmol/L (98-107); Estimated Creatinine Clearance 96 ml/min; Glucose 131 mg/dl (70-99); Potassium 3.9 mmol/L (3.5-5.1); Sodium 138 mmol/L (135-145); eGFR > 60.00
--- NOTE | 2024-10-07 07:34 | W.PN.ONC2 ---
Today's Communication / Plan
-
Hold DOAC until after BMBx then resume. Low risk VTE as splenic infarction. Outpt F/U in 3-4 weeks.
Impression
Impression
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
Splenic infarct -cardiolipin and beta2 glycoprotein negative -heparin gtt transitioned to DOAC (hold for upcoming BMBx)
Hyperuremia improved on allopurinol
Cardiomyopathy LVEF 45-50%
Plan
Plan
bone marrow biopsy as outpt 10/09
on DOAC but hold for BMBx
continue allopurinol
Subjective/Objective
Chief Complaint
ACS Heme Onc
Subjective
No complaints. Likely for discharge home today. For outpatient BMBx 10/09.
Vital Signs:
Vital Signs
Temp Pulse Resp BP Pulse Ox
98.7 F 77 20 153/76 91
10/07/24 03:00 10/07/24 03:00 10/07/24 03:00 10/07/24 03:00 10/07/24 03:00
Lab Results:
Laboratory Data
WBC 82.5 10^3/uL (4.8-10.8) H* 10/07/24 06:27
Hgb 11.6 g/dL (12.0-16.0) L 10/07/24 06:27
Plt Count 509 10^3/uL (130-400) H 10/07/24 06:27
APTT 40.2 Sec (23.4-35.0) H 10/05/24 06:15
eGFR > 60.00 10/07/24 06:27
Physical Exam
HEENT: No Jaundice
Cardiology: S1 and S2
Pulmonary: Clear
GI: Soft
Extremities: No C/C/E
[2024-10-07 07:51] LABS: Glucose - Point of Care 139 mg/dl (70-99)
[2024-10-07] MEDS: COREG 6.25 MG PO (08:13)
[2024-10-07] MEDS: ZYLOPRIM 300 MG PO (08:13)
[2024-10-07] MEDS: ZESTRIL 20 MG PO (08:13)
[2024-10-07] MEDS: NOVOLOG FLEXPEN-LOW RESISTANCE SC ×2 (08:13→12:08)
--- NOTE | 2024-10-07 08:25 | W.PN.CD ---
Today's Communication / Plan
-
- Acute HFmrEF/Dilated cardiomyopathy (EF 40-45%).
- No ischemia on stress test yesterday.
- Will transition from lisinopril to Entresto (start 10/09/24, which is >36 hours after last dose of lisinopril).
- Will start Farxiga.
- Continue Coreg.
- Will start rosuvastatin 5 mg daily.
- Recommend outpatient Cardio-Oncology consultation (Dr. Younger).
- Outpatient follow up with Cardiology.
Impression / Plan
-
I/P: 69F with with hypertension, type 2 diabetes mellitus, ulcerative colitis, and former smoker who presented to the emergency department with a chief complaint of abdominal pain.
Outpatient epic analyst: will be Dr. Sullivan
Acute HFmrEF/Dilated cardiomyopathy (EF 40-45%):
- No ischemia on stress test yesterday.
- Fairly compensated.
- GDMT as tolerated:
-NADIRA/ARB/ARNI: Will transition from lisinopril to Entresto (start 10/09/24, which is >36 hours after last dose of lisinopril).
-SGLT2 inhibitor: Will start Farxiga.
-Aldosterone agonist: Not indicated for LVEF greater than 40%.
-Beta rachid: Continue Coreg.
-Isosorbide/Hydralazine:�Not indicated
-ICD: Not indicated
- Recommend outpatient Cardio-Oncology consultation (Dr. Younger).
- TSH is normal.
Leukocytosis with thrombocytosis and splenic infarct:
- Plan is for outpatient bone marrow biopsy per Heme-Onc
Splenic infarct:
- Large 6.5 cm acute splenic infarct on CT
- Now on apixaban, 10 mg twice daily for 4 more days then will transition to 5 mg twice daily for total of 90 days or until stopped by Heme-Onc
Mitral regurgitation, moderate:
- Continue to monitor as outpatient.
PVC:
- Stable; continue carvedilol.
Atherosclerosis in thoracic aorta:
- Will start rosuvastatin 5 mg daily.
NIDDM, with hyperglycemia, HgbA1c 7.5%:
- Management as per primary team.
Obesity, BMI 40:
- Aggressive weight loss recommended.
Physical Exam
Vital Signs/Labs
Vital Signs
Temp Pulse Resp BP Pulse Ox
98.7 F 77 20 153/76 91
10/07/24 03:00 10/07/24 03:00 10/07/24 03:00 10/07/24 03:00 10/07/24 03:00
10/07/24 06:27
10/07/24 06:27
APTT 40.2 Sec (23.4-35.0) H 10/05/24 06:15
Triglycerides 132 mg/dl (10-149) 10/06/24 06:42
LDL Cholesterol, Calc 82 mg/dl 10/06/24 06:42
VLDL Cholesterol, Calc 26 mg/dl (0-30) 10/06/24 06:42
HDL Cholesterol 31 mg/dl 10/06/24 06:42
10/03/24
06:31
Kxm-O-Edovnsxcrch Pept 698
Physical Exam
Constitutional: No acute distress and Comfortable
EENT: Anicteric
Cardiovascular: Rhythm & rate is regular, Pedal edema is absent, Systolic murmur present (2/6) and S1S2 is normal
Respiratory: Respiratory effort normal and Lungs clear to auscul.
GI: Soft
Neuro/Psych: AO x 3
Other: Skin (warm, dry, intact)
Data Reviewed
-
Date of Service: October 07, 2024
EKG: Tracing Personally Visualized and interpreted (sinus rhythm, PVCs)
Echo: Report Reviewed by me (EF 45-50%, moderate MR)
X-Ray/CT/US/MRI/NUC/PET: Report Reviewed by me (Nuclear stress test 10/06/24: No ischemia for level of exercise achieved.)
Labs: Labs Reviewed by me
[2024-10-07 08:27] VITALS: BP 122/88
[2024-10-07] MEDS: FARXIGA 10 MG PO (09:27)
--- NOTE | 2024-10-07 09:41 | CM ---
Addendum entered by Tri Swann 10/07/24 13:34:
one month free coupon for Entresto provided to patient.
Original Note:
Chart reviewed and plan is for patient to return to home with spouse when stable, nurse outreach case manager checked on pricing of medications yesterday and spoke with patient's spouse, who was upset with cost, Farxiga 10 mg $119 is still on back order with [facility]
and they are unable to provide this medication at this time. Jardiance 10mg $119.29 per month, and Entresto $133.60 per month. Coupon for Jardiance has been provided to patient.
plan; Home with spouse when stable, will need to follow up with physician to check on medications at discharge.
--- NOTE | 2024-10-07 09:55 | W.PN.HOSP.TC ---
Addendum entered and electronically signed by Sonya Regalado MD 10/07/24 14:59:
I saw and evaluated the patient independently. I reviewed the resident�s note and agree with findings and plan as documented by Dr. Barlow.
GENERAL: well developed, well nourished, obese female in no apparent distress
HEENT: NC/AT
HEART: regular rate and rhythm, +S1, +S2, RITESH
LUNGS : clear to auscultation bilaterally
ABDOM: soft, nontender, nondistended, + bowel sounds
EXT: no cyanosis, clubbing, or edema
NEUROLOGIC: grossly intact
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
line, BCR/ABL gene pending--CT abdomen/pelvis: LARGE 6.5 cm ACUTE SPLENIC INFARCT. MODERATE SPLENOMEGALY--cont Eliquis--will need follow up as outpt with heme and IR for bone marrow biopsy (Saturday)--cont allopurinol for tumor lysis--OK for d/c
Cardiomegaly--found on CT scan--ECHO with mildly reduced EF--45-50% but with global hypokinesis--apprec cards--s/p treadmill nuclear stress test without ischemia--now with new diagnosis of acute heart failure with mildly reduced EF--starting
Jardiance, Entresto, Coreg--outpt f/u with cardio-onc (Dr. Younger)
Essential hypertension-- bisoprolol-hydrochlorothiazide to change to Jardiance, Entresto, Coreg
NIDDM--diet controlled- AccuCheck AC & HS- SSI- A1c: 7.5 (10/03)
obesity--affects all aspects of care
DVT proph- Apixaban
Code status-- Full code
Original Note:
Today's Communication/Plan
-
Patient transitioned to Entresto
Jardiance
Coreg
Medically stable for discharge, aware of stopping Eliquis until after procedure on 10/09
Assessment / Plan
Assessment / Plan
Ms Narvaez is a 69-year-old female with past medical history significant for ulcerative colitis, kidney stones, hypertension and NIDDM who presented with generalized upper abdominal pain ongoing for the past 3-4 days. Patient reports symptoms
began with intractable nausea and vomiting on Saturday morning and ended by the afternoon. She then began with abdominal pain that was initially right upper quadrant predominantly then shifting to left upper quadrant. Left upper quadrant significant
pain continues. No pelvic pain or lower abdominal discomfort reported. No fevers but does have episodes of diaphoresis that she compares to the sweats she would get when going through menopause. She reports pleuritic left upper quadrant pain some
mild left-sided chest tightness especially with deep breathing. In the ED EKG was sinus rhythm with PVCs and PACs, CTA showed moderate to severe cardiomegaly, with no PE, CT abdomen pelvis showed 6.5 cm splenic infarct. Blood work showed WBC 97
hemoglobin 13 platelets 451, Na 137 K4 chloride 103 HCO3 26 BUN 19 creatinine 0.8. Patient was started on heparin drip for the splenic infarct and hematology was consulted. Hematology sent out battery of tests including antiphospholipid syndrome
lupus panel BCR abl. Heme-onc thinks this could possibly be a myeloid disorder, requiring bone marrow biopsy outpatient. Outpatient biopsy scheduled with IR for Monday 10/09, patient to hold Eliquis prior to procedure 10/07 and restarted after 10/09.
patient was transition from heparin drip to Eliquis. Echo performed showed 45 to 50% ejection fraction, with global hypokinesis. Cardiology consulted, who ordered a nuclear stress test. Also showed no ischemia on the stress test, but acute HF or
EF/dilated myocardiopathy with an EF of 40-45%. Cardiology started her on Jardiance, Entresto, Coreg, rosuvastatin. Patient scheduled for outpatient follow-up with cardiology and cardio oncology.
#Leukocytosis
#Thrombocytosis
#Splenic infarct
- Hypercoagulable state vs cardioembolic
- CT abdomen/pelvis: LARGE 6.5 cm ACUTE SPLENIC INFARCT. MODERATE SPLENOMEGALY.
- Anticoagulation transitioned from heparin gtt to apixaban
-Continue apixaban 10 mg p.o. twice daily for 4 more days, followed by apixaban 5 mg p.o. twice daily for 90-day completion course, or until
- Trend CBC, LDH, uric acid
- Plan for outpatient follow-up with heme-onc for further evaluation and bone marrow biopsy
Biopsy 10/09, stop apixaban 10/07, resume on 10/09 evening
- Heme-onc following
Negative cardiolipin, negative beta-2 glycoprotein
Continue allopurinol
# Cardiomegaly
- Chest CTA: Moderate to severe cardiomegaly
- Echocardiogram EF 45 to 50%, global hypokinesis
Cardiology consulted
Nuclear stress test ordered
Optimizing GDMT for patient
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
- No ischemia on stress test yesterday.
Will transition from lisinopril to Entresto (start 10/09/24, which is >36 hours after last dose of lisinopril).
- Will start jardiance
- Coreg.
- Will start rosuvastatin 5 mg daily.
- Recommend outpatient Cardio-Oncology consultation (Dr. Younger).
- Outpatient follow up with Cardiology.
# Essential hypertension
Appreciate cards recs
transition of lisinopril to Entresto
addition of SGLT2
coreg
#NIDDM
- Patient reports diet controlled
- Jardiance
- AccuCheck AC & HS
- SSI
- A1c: 7.5 (10/03)
DVT prophylaxis: Apixaban
Code status: Full code
Anticipated Discharge: Today
Subjective/Interval History
-
Patient was doing well today. She reports that the stress test was hard but managable. She was started on coreg yesterday and she feels better today already. No complaints of pain anywhere. Date of Service: October 07, 2024
Objective Data
-
Labs:
Laboratory Results
10/07/24
06:27
WBC 82.5 H*
Hgb 11.6 L
Hct 35.9 L
Plt Count 509 H
Sodium 138
Potassium 3.9
Chloride 104
Carbon Dioxide 23
BUN 17
Creatinine 0.7
Glucose 131 H
Calcium 9.3
Vital Signs:
Vital Signs
Temp Pulse Resp BP Pulse Ox
98.8 F 80 18 122/88 94
10/07/24 08:27 10/07/24 08:27 10/07/24 08:27 10/07/24 08:27 10/07/24 08:27
I&O
10/06/24 10/07/24 10/08/24
06:59 06:59 06:59
Intake Total 480 / 480
Balance 480 / 480
Review of Systems
-
History Source: Patient
Constitutional: Reports No Symptoms; Denies Fever or Fatigue
EENT: Reports No Symptoms Reported; Denies Sore Throat or Runny Nose
Respiratory: Reports No Symptoms; Denies Cough or Wheezing
Cardiac: Reports No Symptoms; Denies Chest Pain or Palpitations
Abdomen/GI: Reports No Symptoms; Denies Abdominal Pain, Nausea, Vomiting or Diarrhea
Genitourinary: Reports No Symptoms
Musculoskeletal: Reports No Symptoms
Skin: Reports No Symptoms; Denies Itching
Neuro: Reports No Symptoms; Denies Dizzy or Headache
Physical Exam
-
General: Well Developed, Well Nourished and No Apparent Distress
HEENT: Normocephalic and Atraumatic
Respiratory: Clear to Auscultation; Negative Wheezes, Crackles or Non Labored Respirations
Cardiac: Regular Rhythm and S1/S2; Negative Murmur or Rub
GI: Soft, Nontender, Nondistended and Normal Bowel Sounds
Musculoskeletal: No Clubbing, No Cyanosis and No Edema
Skin: Warm, Dry and Rash
Neuro: Awake, Alert and Oriented
Psych: Calm
[2024-10-07 11:55] LABS: Glucose - Point of Care 101 mg/dl (70-99)
[2024-10-07 12:16] VITALS: BP 125/73
--- NOTE | 2024-10-07 14:56 | W.DCSUMMARY ---
Addendum entered and electronically signed by Sonya Regalado MD 10/07/24 15:45:
Read, reviewed, and agree. See same day progress note for additional details. Time spent coordinating care, DC planning, review of DC plan of care with resident, transition of care, review of records in EMR, med rec, consults, notes, d/w
consultants, nursing, family, and CM = 37 minutes
Original Note:
Discharge Summary
Discharge Data
Date of Admission: 10/01/24
Date of Discharge: 10/07/24
-
Pending Results: Yes
Additional Pending Results:
BCR/abl analysis
Hospital Course
Discharging Physician : Dr. Regalado, Dr. Barlow
Disposition : Home
Primary care physician : Dr. Lara Langston
Principal Discharge diagnosis : Myeloproliferative disorder, splenic infarct, HFmrEF
Chronic Discharge diagnosis :
ulcerative colitis
Essential hypertension
Type 2 diabetes
Hospital Course :
Ms Narvaez is a 69-year-old female with past medical history significant for ulcerative colitis, kidney stones, hypertension and nonmedicated NIDDM A1c 7.5 (10/03/2024) who presented 10/01 with generalized upper abdominal pain ongoing for the past
3-4 days. Patient reports symptoms began with intractable nausea and vomiting on Saturday morning and ended by the afternoon. She then began with abdominal pain that was initially right upper quadrant predominantly then shifting to left upper
quadrant. Left upper quadrant significant pain continues. No pelvic pain or lower abdominal discomfort reported. No fevers but does have episodes of diaphoresis that she compares to the sweats she would get when going through menopause. She reports
pleuritic left upper quadrant pain some mild left-sided chest tightness especially with deep breathing. In the ED EKG was sinus rhythm with PVCs and PACs, CTA showed moderate to severe cardiomegaly, with no PE, CT abdomen pelvis showed 6.5 cm
splenic infarct. Blood work showed WBC 97 hemoglobin 13 platelets 451, Na 137 K4 chloride 103 HCO3 26 BUN 19 creatinine 0.8 and hyperuremic. Patient was started on heparin drip for the splenic infarct and hematology was consulted. Hematology sent
out battery of tests including antiphospholipid syndrome lupus panel BCR abl. Antiphospholipid syndrome panel negative, lupus panel inconclusive, BCR/abl pending. Heme-onc thinks this could possibly be a myeloid disorder, requiring bone marrow
biopsy outpatient. They also started patient on allopurinol for hyperuricemia. Outpatient biopsy scheduled with IR for Monday 10/09, patient to hold Eliquis prior to procedure 10/07 and restarted after 10/09. patient was transition from heparin drip
to Eliquis. Cardiology was consulted for the cardiomegaly. Echo performed showed 45 to 50% ejection fraction, with global hypokinesis. Cardiology ordered a nuclear stress test which showed no ischemia on the stress test, but acute HFmrEF/dilated
myocardiopathy with an EF of 40-45%. Cardiology started her on GDMT Jardiance, Entresto, Coreg, rosuvastatin. Patient scheduled for outpatient follow-up with cardiology and cardio oncology. At discharge her vitals showed she was afebrile but
hypertensive and she has been throughout her entire hospital course. WBC 83, hemoglobin 11.6, platelets 509, sodium 138 K3.9 CL 104 creatinine 0.7. Patient was medically stable for discharge.
Important imaging findings :
CTA chest/CT abdomen pelvis 10/01
IMPRESSION:
CHEST CTA:
1. MODERATE to SEVERE CARDIOMEGALY with suggestion of a dilated nonischemic cardiomyopathy.
2. Mild calcific atherosclerotic plaque in the coronary arteries.
3. Mild mediastinal lymphadenopathy.
4. Moderate mosaic attenuation pattern throughout the lungs suggesting obstructive small airways disease with multifocal air trapping and subsegmental atelectasis.
5. Bands of dense airspace consolidation in the left lower lobe and lingula. Diagnostic possibilities are (1) left lower lobe and lingular pneumonia (especially in the setting of leukocytosis) or (2) bands of subsegmental atelectasis or scarring.
ABDOMEN and PELVIS:
1. LARGE 6.5 cm ACUTE SPLENIC INFARCT.
2. MODERATE SPLENOMEGALY. Diagnostic possibilities are (1) lymphoma or other myeloproliferative disease, (2) anemia, or (3) infection.
3. Severe diffuse hepatic steatosis and mild hepatomegaly.
4. Mild upper abdominal lymphadenopathy.
5. Moderate amount of fecal material throughout the proximal colon.
6. Severe diverticulosis in the sigmoid colon.
7. Pelvic floor prolapse with a rectocele and small cystocele.
8. Previous JM-BSO.
9. Severe lower lumbar facet joint arthrosis.
Procedure findings :
EKG 10/01
SINUS RHYTHM WITH OCCASIONAL PREMATURE VENTRICULAR COMPLEXES AND PREMATURE
ATRIAL COMPLEXES
POSSIBLE LEFT ATRIAL ENLARGEMENT
MINIMAL VOLTAGE CRITERIA FOR LVH, MAY BE NORMAL VARIANT ( Jimmy product )
NONSPECIFIC ST AND T WAVE ABNORMALITY
ABNORMAL ECG
WHEN COMPARED WITH ECG OF 01-OCT-2024 13:14,
PREMATURE VENTRICULAR COMPLEXES ARE NOW PRESENT
PREMATURE ATRIAL COMPLEXES ARE NOW PRESENT
Echocardiogram 10/05
CONCLUSIONS
Mildly reduced left ventricular systolic function.
Estimated Left ventricular ejection fraction is 45-50% Global hypokinesis.
Moderate mitral regurgitation.
Trace tricuspid regurgitation.
No prior study available for comparison.
Sestamibi stress test 10/06
CONCLUSION:
Exercise treadmill nuclear perfusion stress test limited due to fatigue and hypertensive BP response
No ECG or nuclear perfusion evidence of ischemia at the level of exercise achieved
Exercise capacity is below average
Stress Risk is moderate due to reduced exercise capacity and EF 43%
Systolic function is mildy reduced. The ejection fraction is 43%.
No prior study for comparison
Discharge Plan
-
Patient Disposition: Home (Routine Discharge)
Discharge Diagnosis/Procedures: splenic infarct, myeloproliferative disorder, HFmrEF
Condition: Good
Diet: As tolerated
Activity: No restrictions
Driving Restrictions: As prior to admission
Referrals:
Aiden Younger MD [Active, Cardiology]
Referral Note: suspected CML, followed by heme/onc
Aretha Bowen CRNP [Specified Professional Personl, Cardiology] - 10/21/24 8:40 am
NONE,* [Family Provider, Internal Medicine]
Lara Langston DO, Resident [Family Practice Resident Year1, General] - in less than 1 week
Additional Discharge Medication Instructions: Biopsy scheduled on 10/09, stop blood thinner on 10/07 resume on evening of 10/09
Prescriptions:
New
Jardiance 10 mg tablet
10 mg PO DAILY Qty: 30 5RF
carvedilol 6.25 mg Tablet
6.25 mg PO BID Qty: 60 0RF
rosuvastatin 10 mg Tablet
5 mg PO QPM Qty: 30 0RF
Eliquis 5 mg Tablet
10 mg PO BID Qty: 60 0RF
Entresto 24-26 mg Tablet
1 tab PO BID Qty: 60 0RF
allopurinol 300 mg Tablet
300 mg PO DAILY Qty: 30 0RF
Continued
therapeutic multivitamin Tablet
1 tab PO QPM
acetaminophen [Tylenol Extra Strength] 500 mg Tablet
1,000 mg PO Q6HPRN PRN (Reason: mild pain)
Discontinued
bisoprolol-hydrochlorothiazide 10-6.25 mg Tablet
1 tab PO BID
Patient Comments:
10/01/2024, last filled on 01/10/2024 for 90-day supply per [facility] pharmacy in [place], [place] ([address]
lisinopril 10 mg Tablet
10 mg PO BID
Patient Comments:
10/01/2024, last filled on 02/24/2024 for 14 tablets per [facility] pharmacy in [place], [place] ([address]
Discharge Orders:
Discharge Patient (As Directed); Ordered 10/07/24
Ordered By: Norma Barlow
Discharge Date and Time
Discharge Date/Time: 10/07/24 14:36
Print Language: MACEDONIAN
[2024-10-13 18:29] LABS: BCR-ABL1 Major (p210) Source Whole Blood; BCR/ABL1, Major (p210) High Positive
[2024-10-13 19:53] LABS: BCR-ABL1 Source Whole Blood; BCR-ABL1, Diagnostic Qual Positive Major
== END 2024-10-07 14:36 | disposition home or self-care (01) | DRG 814 ==
LOC: 4 WEST ACU 19:58
PROVIDERS: Internal Medicine; Nurse Practitioner Acute Care; Nurse Practitioner Family; Nurse Practitioner Gerontology; Physician Assistant; Student in an Organized Health Care Education/Training Program; ADMITTING PHYSICIAN Internal Medicine; ATTENDING PHYSICIAN Internal Medicine; CONSULT PHYSICIAN Internal Medicine Cardiovascular Disease; CONSULT PHYSICIAN Internal Medicine Hematology & Oncology; EMERGENCY PHYSICIAN Emergency Medicine
PROC: 4A02XM4 Measurement of Cardiac Total Activity, External Approach (ICD-10-PCS; 2024-10-06)
PROC: 3E033HZ Introduction of Radioactive Substance into Peripheral Vein, Percutaneous Approach (ICD-10-PCS; 2024-10-06)
DX: D73.5 Infarction of spleen (principal); I50.21 Acute systolic (congestive) heart failure; C92.10 Chronic myeloid leukemia, BCR/ABL-positive, not having achieved remission; I42.9 Cardiomyopathy, unspecified; Z68.41 Body mass index [BMI] 40.0-44.9, adult; K51.90 Ulcerative colitis, unspecified, without complications; I42.0 Dilated cardiomyopathy; I11.0 Hypertensive heart disease with heart failure; R16.2 Hepatomegaly with splenomegaly, not elsewhere classified; I49.3 Ventricular premature depolarization; I34.0 Nonrheumatic mitral (valve) insufficiency; D75.839 Thrombocytosis, unspecified; E11.65 Type 2 diabetes mellitus with hyperglycemia; I70.0 Atherosclerosis of aorta; E66.01 Morbid (severe) obesity due to excess calories; I49.1 Atrial premature depolarization; K76.0 Fatty (change of) liver, not elsewhere classified; M47.816 Spondylosis without myelopathy or radiculopathy, lumbar region; I25.10 Atherosclerotic heart disease of native coronary artery without angina pectoris; K42.9 Umbilical hernia without obstruction or gangrene; M19.90 Unspecified osteoarthritis, unspecified site; Z87.442 Personal history of urinary calculi; Z87.891 Personal history of nicotine dependence; Z83.3 Family history of diabetes mellitus; Z82.49 Family history of ischemic heart disease and other diseases of the circulatory system; Z90.722 Acquired absence of ovaries, bilateral; Z90.710 Acquired absence of both cervix and uterus
CPT/HCPCS: 71275; 74177; 78452; 80048; 80053; 80061; 81206; 81207; 81208; 82728; 82962; 83036; 83615; 83690; 83880; 84443; 84550; 85025; 85027; 85520; 85525; 85610; 85613; 85670; 85730; 86146; 86147; 87040; 93005; 93017; 93306; 96365; 96375; 99285; A9500; Q9967

== ENCOUNTER → 2024-10-09 09:04 | Outpatient (REF) | payer MEDICARE, OTHER, SELFPAY ==
[2024-10-09 09:49] LABS: INR 1.13; PT 14.8 Sec (11.4-14.6)
[2024-10-09 09:57] VITALS: BP 154/89; BP_SYST 64
[2024-10-09] MEDS: ATIVAN 0.5 MG PO (10:12)
[2024-10-09 10:15] LABS: Hematocrit 39.5 % (37.0-47.0); Hemoglobin 12.8 g/dL (12.0-16.0); Mean Corp Hgb Conc. 32.4 g/dL (33.0-37.0); Mean Corpuscular Volume 90.2 fL (81.0-99.0); Platelet Count 560 10^3/uL (130-400); Red Cell Dist. Width 17.0 % (11.5-14.5)
[2024-10-09 10:25] LABS: Absolute Neutrophils -Man Diff 71.4 10^3/uL (1.4-6.5)
[2024-10-09 10:27] LABS: Anisocytosis 1+; Hypochromasia 1+; Microcytosis 1+; Normal RBC Morphology No; Platelets Checked Yes; Polychromasia Slight; Total Cells Counted 100
[2024-10-09 10:57] VITALS: BP 135/69
[2024-10-09 11:02] VITALS: BP 143/70
[2024-10-09 11:08] VITALS: BP 137/71; BP_SYST 80
== END ==
LOC: RADI 09:04
PROVIDERS: ATTENDING PHYSICIAN Internal Medicine Hematology & Oncology
DX: D72.829 Elevated white blood cell count, unspecified (principal); D75.839 Thrombocytosis, unspecified; D68.8 Other specified coagulation defects
CPT/HCPCS: 36415; 38222; 77012; 85025; 85610; 88305; 88311; 88312; 88313

== ENCOUNTER → 2024-11-02 15:35 | Outpatient (REF) | payer MEDICARE, OTHER, SELFPAY ==
[2024-11-02 19:25] LABS: Hepatitis B Surface Antigen Negative (Negative)
== END ==
LOC: OIDL 15:35
PROVIDERS: ATTENDING PHYSICIAN Internal Medicine Hematology & Oncology
DX: E79.0 Hyperuricemia without signs of inflammatory arthritis and tophaceous disease (principal); I42.9 Cardiomyopathy, unspecified; D75.839 Thrombocytosis, unspecified; C92.10 Chronic myeloid leukemia, BCR/ABL-positive, not having achieved remission; R53.82 Chronic fatigue, unspecified
CPT/HCPCS: 83880; 84443; 86704; 86706; 87340

== ENCOUNTER → 2024-11-26 09:53 | Outpatient (REF) | payer MEDICARE, OTHER, SELFPAY | LOC: RCS 09:53 | PROVIDERS: ATTENDING PHYSICIAN Internal Medicine Hematology & Oncology; FAMILY PHYSICIAN Student in an Organized Health Care Education/Training Program | DX: E79.0 Hyperuricemia without signs of inflammatory arthritis and tophaceous disease (principal); I42.9 Cardiomyopathy, unspecified; D75.839 Thrombocytosis, unspecified; C92.10 Chronic myeloid leukemia, BCR/ABL-positive, not having achieved remission | CPT/HCPCS: 93005 ==

== ENCOUNTER → 2024-12-14 08:49 | Outpatient (REF) | payer MEDICARE, OTHER, SELFPAY | LOC: HWRCS 08:49 | PROVIDERS: ATTENDING PHYSICIAN Nurse Practitioner Gerontology; FAMILY PHYSICIAN Student in an Organized Health Care Education/Training Program | DX: I50.22 Chronic systolic (congestive) heart failure (principal) | CPT/HCPCS: 93306 ==